=== PATIENT | female | born 1935 | race Caucasian/White ===

== ENCOUNTER 2019-11-13 10:18 | Inpatient (IN) | payer MEDICARE ==
[~2019-11-13] VITALS: Ht 160 cm; Wt 81.8 kg
[2019-11-13] MEDS ORDERED: METF-839 PO (10:43)
[2019-11-13] MEDS ORDERED: GABA-843 PO (10:43)
[2019-11-13] MEDS ORDERED: NETA2.5D2 OU (10:43)
[2019-11-13] MEDS ORDERED: OMEP-218 PO (10:43)
[2019-11-13] MEDS ORDERED: COMB0.2S OU (10:43)
[2019-11-13] MEDS ORDERED: VICT18IN SC (10:43)
[2019-11-13] MEDS ORDERED: ACET-839 PO (10:43)
[2019-11-13] MEDS ORDERED: SYNT75TA PO (10:43)
[2019-11-13] MEDS ORDERED: GLIP10TA6 PO (10:43)
[2019-11-13] MEDS ORDERED: LISI40TA PO (10:43)
[2019-11-13] MEDS ORDERED: OMEG10002 PO (10:43)
[2019-11-13] MEDS ORDERED: CALC-211 PO (10:43)
[2019-11-13] MEDS ORDERED: FARX1TAB3 PO (10:43)
[2019-11-13] MEDS ORDERED: TRAM50TA2 PO (10:43)
[2019-11-13] MEDS ORDERED: ATOR1TAB21 PO (10:43)
[2019-11-13] MEDS ORDERED: ASPI81CH33 PO (10:43)
[2019-11-13] MEDS ORDERED: PRED5TA PO (10:43)
[2019-11-13] MEDS ORDERED: POTA20TA6 PO (10:43)
[2019-11-13 11:09] LABS: BASO % 0.2 % (0.0-1.0); EOS % 0.3 % (0.0-3.0); HEMATOCRIT 32.7 % (36.0-47.0); HEMOGLOBIN 10.7 g/dl (12.0-15.5); LYMPH # 0.8 10^3/uL (1.5-5.0); LYMPH % 7.4 % (24.0-44.0); MEAN CORPUSCULAR HEMOGLOBIN 32.4 pg (27.0-33.0); MEAN CORPUSCULAR HGB CONC 32.7 g/dl (32.0-36.5); MEAN CORPUSCULAR VOLUME 99.1 fl (80.0-96.0); MONO # 0.9 10^3/uL (0.0-0.8); MONO % 8.2 % (0.0-5.0); NEUTROPHILS # 8.9 10^3/uL (1.5-8.5); NEUTROPHILS % 83.5 % (36.0-66.0); PLATELET COUNT, AUTOMATED 225 10^3/uL (150-450); WHITE BLOOD COUNT 10.7 10^3/uL (4.0-10.0)
[2019-11-13 11:17] LABS: INR 0.98; PROTHROMBIN TIME 13.2 SECONDS (12.5-14.3)
[2019-11-13 11:40] LABS: ALBUMIN 3.1 GM/DL (3.2-5.2); ALT/SGPT 37 U/L (12-78); BILIRUBIN,TOTAL 0.9 MG/DL (0.2-1.0); BLOOD UREA NITROGEN 18 MG/DL (7-18); CALCIUM LEVEL 9.9 MG/DL (8.8-10.2); CARBON DIOXIDE LEVEL 32 MEQ/L (21-32); CHLORIDE LEVEL 97 MEQ/L (98-107); CREATININE FOR GFR 0.72 MG/DL (0.55-1.30); GLOMERULAR FILTRATION RATE > 60.0 (>32); GLUCOSE, FASTING 215 MG/DL (70-100); POTASSIUM SERUM 3.8 MEQ/L (3.5-5.1); SODIUM LEVEL 135 MEQ/L (136-145); TOTAL PROTEIN 7.3 GM/DL (6.4-8.2)
--- NOTE | 2019-11-13 12:18 | REPVR ---
PROCEDURE INFORMATION: Exam: XR Left Hip with Pelvis when Performed Exam date and time: 11/13/2019 10:30 AM Age: 83 years old Clinical indication: Hip pain; Left hip; Prior surgery; Surgery date: 3-7 days post-operative; Additional info: Trauma S/P recent hip replacement TECHNIQUE: Imaging protocol: XR Left hip with pelvis when performed. Views: 2 or 3 views. COMPARISON: RF Arthrogram, Hip 08/19/2013 7:49 AM FINDINGS: Bones/joints: There is posterior dislocation the femoral head from the acetabular cup with mild proximal retraction. There is no evidence of fracture. Soft tissues: Unremarkable. IMPRESSION: 1. There is posterior dislocation the femoral head from the acetabular cup with mild proximal retraction. 2. There is no evidence of fracture. Electronically signed by: Tha Zavala On 11/13/2019 12:18:43 PM
[2019-11-13] MEDS ORDERED: propofoL 200 MG/20 ML VIAL IV PRN (13:00)
[2019-11-13] MEDS ORDERED: KETAMINE HCL 200 MG/20 ML VIAL IV ONE (13:00)
--- NOTE | 2019-11-13 13:34 | REPVR ---
PROCEDURE INFORMATION: Exam: XR Left Hip with Pelvis when Performed Exam date and time: 11/13/2019 1:26 PM Age: 83 years old Clinical indication: Injury or trauma; Fall; Dislocation; Left; Hip; Injury details: Post reduction; Prior surgery; Surgery date: <1 month TECHNIQUE: Imaging protocol: XR Left hip with pelvis when performed. Views: 1 view. COMPARISON: CR Hip,AP,LAT to include Pelvis 11/13/2019 11:56 AM FINDINGS: Bones/joints: There has been reduction of the left hip dislocation based on the single AP view.There is no evidence of fracture. Soft tissues: Unremarkable. IMPRESSION: There has been reduction of the left hip dislocation based on the single AP view.There is no evidence of fracture. Electronically signed by: Tha Zavala On 11/13/2019 13:33:57 PM
[2019-11-13] MEDS: NS 1,000 ML IV SCH ×2 (13:38→22:50)
[2019-11-13] MEDS ORDERED: GLUCOSE 4GM CHEW TABLET PO PRN (15:00)
[2019-11-13] MEDS ORDERED: GLUCAGON INJ 1MG VIAL SC PRN (15:00)
[2019-11-13] MEDS ORDERED: ACETAMINOPHEN TAB 650MG DOSE (2X325MG) PO PRN (15:00)
[2019-11-13] MEDS ORDERED: DEXTROSE 50% 50 ML SYRINGE IV PRN (15:00)
[2019-11-13] MEDS ORDERED: POTA10TA14 PO (15:19)
[2019-11-13] MEDS ORDERED: D31000TA2 PO (15:20)
[2019-11-13] MEDS ORDERED: GLIP10TA18 PO (15:20)
[2019-11-13] MEDS ORDERED: CHLO25TA PO (15:20)
[2019-11-13] MEDS ORDERED: VITMTA PO (15:20)
[2019-11-13] MEDS ORDERED: ASPI-161 PO (15:20)
[2019-11-13 16:05] VITALS: BP 154/80
[2019-11-13] MEDS ORDERED: CALCIUM CARBONATE 500 MG CHEW U/D PO PRN (16:15)
[2019-11-13] MEDS ORDERED: traMADol 50 MG TAB PO PRN (16:15)
[2019-11-13] MEDS: GABAPENTIN 300 MG CAP PO SCH ×2 (17:14→22:42)
[2019-11-13] MEDS: HumaLOG INSULIN (NovoLOG) PER UNIT SC SCH ×2 (17:25→21:00)
--- NOTE | 2019-11-13 19:23 | HPEPDOC ---
General Date of Admission Nov 13, 2019 at 14:49 Date of Service: Nov 13, 2019 Attending Physician: CONCHA SOLIS DO Chief Complaint The patient is a 83-year-old female admitted with a reason for visit of Hip Dislocation/Weakness. Source: Patient Exam Limitations: No limitations History of Present Illness Mrs. Irving is an 83 year old female with DM, hypothyroidism, HTN, and glaucoma who recently had hip surgery and discharged on Sunday who is here after having multiple falls. Her surgery was done by Dr. Jerod MD of [facility]. On Sunday, she went home, but she noticed she had trouble getting into and out of bed. She tried to get out of bed and slid to the ground. When she tried to get into bed, she also fell and slid to the ground. She then decided to sleep on the couch. On Sunday evening, she got up from the toilet to sit on the chair and misjudged the distance and fell on the ground. During each of these falls, she denies head strike, loss of consciousness, or lightheadedness/dizziness. Then time, when she fell, she could not get up. She was taken to the ED where she was found to have a left hip posterior dislocation of the femoral head from the acetabular cup. There was no evidence for fracture. They were able to reduce and confirm on repeat imaging. She has not been able to care for self at home and would need rehab to strengthen herself before going home. When I saw her in the ED, she denied any fever/chills, chest pain, palpitations, dyspnea, abdominal pain, diarrhea, or dysuria. Her bowel movements have been regular except for today. She sometimes feels fuzzy when she takes pain medication. Home Medications Scheduled Acetaminophen (Acetaminophen) 500 Mg Tablet, 1,000 MG PO BID, (Reported) Aspirin (Aspirin EC) 81 Mg Tablet., 81 MG PO BID, (Reported) Atorvastatin Calcium (Atorvastatin Calcium) 20 Mg Tablet, 20 MG PO QHS, (R eported) Brimonidine Tartrate/Timolol (Combigan 0.2%-0.5% Eye Drops) 5 Ml Drops, 1 DROP OU BID, (Reported) Calcium Carbonate (Calcium) 600 Mg Tablet, 600 MG PO DAILY, (Reported) Chlorthalidone (Chlorthalidone) 25 Mg Tablet, 25 MG PO DAILY, (Reported) Cholecalciferol (Vitamin D3) (Vitamin D3) 1,000 Unit Tablet, 1,000 UNITS PO DAILY, (Reported) Dapagliflozin Propanediol (Farxiga) 10 Mg Tablet, 5 MG PO DAILY, (Reported) Gabapentin (Gabapentin) 300 Mg Capsule, 300 MG PO TID, (Reported) Glipizide (Glipizide ER) 10 Mg Tab.er.24, 10 MG PO BID, (Reported) Levothyroxine Sodium (Synthroid) 75 Mcg Tablet, 75 MCG PO DAILY, (Reported) Liraglutide (Victoza 2-Topher) 0.6 Mg/0.1 Ml Pen.injctr, 1.8 MG SC DAILY, (Reported) Lisinopril (Lisinopril) 40 Mg Tablet, 40 MG PO DAILY, (Reported) Metformin HCl (Metformin HCl) 500 Mg Tablet, 500 MG PO BID, (Reported) Multivitamins (Thera M Plus Tablet) 1 Each Tablet, 1 TAB PO DAILY, (Reported) Netarsudil Mesylat/Latanoprost (Rocklatan 0.02%-0.005% Eye Drp) 2.5 Ml Drops, 1 DROP OU QHS, (Reported) [place]-3/Dha/Epa/Fish Oil (Fish Oil 1,000 mg Softgel) 1 Each Capsule, 1,000 MG PO QHS, (Reported) Omeprazole (Omeprazole) 20 Mg Capsule.dr, 20 MG PO DAILY, (Reported) Potassium Chloride (Potassium Chloride) 10 Meq Tablet.er, 10 MEQ PO BID, (Reported) Prednisone (Prednisone) 5 Mg Tablet, 5 MG PO DAILY, (Reported) Scheduled PRN Tramadol HCl (Tramadol HCl) 50 Mg Tablet, 50 MG PO Q4H PRN for PAIN, (Reported) Allergies Coded Allergies: Sulfa (Sulfonamide Antibiotics) (Verified Adverse Reaction, Unknown, hallucinations, 11/13/19) Past Medical History Medical History 1. Glaucoma 2. Hypercholesterolemia 3. Hypertension 4. Hemorrhoids 5. Constipation 6. GERD 7. Arthritis 8. Diabetes 9. Hypothyroidism 10. Claustrophobia Surgical History 1. Breast biopsy that was benign 2. Hysterectomy 3. Bladder suspension 4. Knee replacement in 1999 and 2007 5. Left hip on 11/11/2019 6. Carpal tunnel Family History Father: at the age of 85 from suicide. History of thyroid cancer Mother: at the age of 60. History of diabetes mellitus Social History * Smoker: Denies Alcohol: occationally Drugs: denies A-FIB/CHADSVASC A-FIB History Current/History of A-Fib/PAF?: No Review of Systems Constitutional: Denies: Chills, Fever Eyes: Denies: Vision change ENT: Denies: Dysphagia, Sore Throat Pulmonary: Denies: Dyspnea Cardiovascular: Denies: Chest Pain, Palpitations, Lt Headedness Gastrointestinal: Denies: Nausea, Abdominal Pain, Diarrhea, Constipation Genitourinary: Denies: Dysuria Musculoskeletal: Reports: Other Symptoms (Left hip pain, better after reduction) Neurological: Reports: Weakness, Other Symptoms (Fuzzy when taking pain medication) Psych: Reports: Mood Normal Physical Examination General Exam: Positive: Alert, Cooperative, No Acute Distress Eye Exam: Positive: EOMI; Negative: Sclera icteric ENT Exam: Positive: Atraumatic Neck Exam: Positive: Supple Chest Exam: Positive: Clear to auscultation; Negative: Rales, Rhonchi, Wheezing Heart Exam: Positive: Rate Normal Abdomen Exam: Positive: Normal bowel sounds, Soft; Negative: Tenderness Extremity Exam: Positive: Edema (Mild bilateral pitting edema) Neuro Exam: Positive: Normal Speech, Cranial Nerves 3-12 NL Psych Exam: Positive: Mental status NL, Mood NL Vital Signs Vital Signs Date Time Temp Pulse Resp B/P (MAP) Pulse Ox O2 Delivery O2 Flow Rate FiO2 11/13/19 15:45 98.8 72 20 149/68 (95) 95 Room Air 11/13/19 13:31 4.0 Laboratory Data Labs 24H Laboratory Tests 2 11/13/19 10:51: Immature Granulocyte % (Auto) 0.4, Neutrophils (%) (Auto) 83.5H, Lymphocytes (%) (Auto) 7.4L, Monocytes (%) (Auto) 8.2H, Eosinophils (%) (Auto) 0.3, Basophils (%) (Auto) 0.2, Neutrophils # (Auto) 8.9H, Lymphocytes # (Auto) 0.8L, Monocytes # (Auto) 0.9H, Eosinophils # (Auto) 0.0, Basophils # (Auto) 0.0, Nucleated Red Blood Cells % (auto) 0.0, Prothrombin Time 13.2, Prothromb Time International Ratio 0.98, Anion Gap 6L, Glomerular Filtration Rate > 60.0, Calcium Level 9.9, Total Bilirubin 0.9, Aspartate Amino Transf (AST/SGOT) 58H, Alanine Aminotransferase (ALT/SGPT) 37, Alkaline Phosphatase 56, Total Protein 7.3, Albumin 3.1L, Albumin/Globulin Ratio 0.7L 11/13/19 17:21: Bedside Glucose (Misc Panel) 117H CBC/BMP Laboratory Tests 11/13/19 10:51 Assessment/Plan Mrs. Irving is a 83 year old female with HTN, DM, HLD, arthritis, knee repl acements, and recent hip surgery on 11/11/2019 who is here with left hip dislocation and weakness. The left hip was reduced, no fracture was noted. Due to her frequent falls after hip surgery, she would benefit from rehab prior to going home. We will place an ARU screen for appropriateness for ARU rehab. Plan / VTE VTE Prophylaxis Ordered?: Yes Plan Plan 1. Left hip repair - Performed on 11/11/[address] Newsome ([facility]) - She went home and has had falls. First two falls on Sunday trying to get into and out of the bed. Third fall today which resulted in dislocation of left hip. It was reduced - Continue pain control - Will need physical therapy/rehab 2. Debility - After left hip replacement on 11/11/2019, she has not done well at home. Will need rehab 3. Hypertension May be elevated secondary to pain Continue lisinopril Continue monitoring 4. Hypothyroidism We will continue levothyroxine 5. Diabetes mellitus While inpatient we will hold Farxiga, glipizide, and Victoza Patient will be on insulin sliding scale and carb consistent diet 6. Glaucoma We will continue Brimonidine, Timolol, and Latanoprost We do not have Netarsudil 7. GERD We will continue omeprazole 8. Macrocytic anemia Hemoglobin 10.7 and MCV of 99.1 Continue monitoring 9. DVT prophylaxis Heparin twice a day CONCHA SOLIS DO Nov 13, 2019 17:48
[2019-11-13 20:00] VITALS: BP 129/64
[2019-11-13] MEDS: TIMOLOL MALEATE 0.5% OPHTH SOLN 5 ML OU SCH (22:38)
[2019-11-13] MEDS: LATANOPROST 0.005% OPHTH SOLN 2.5 ML OU SCH (22:38)
[2019-11-13] MEDS: ATORVASTATIN 20 MG TAB PO SCH (22:41)
[2019-11-13] MEDS: ASPIRIN 81 MG ENTERIC TAB PO SCH (22:41)
[2019-11-13] MEDS: BRIMONIDINE 0.1% OPHTH SOLN 5 ML OU SCH (22:41)
[2019-11-13] MEDS: POTASSIUM CHLORIDE 10 MEQ SR TABLET PO SCH (22:42)
[2019-11-13] MEDS: ACETAMINOPHEN 500 MG TAB PO SCH (22:42)
[2019-11-13] MEDS: HEPARIN SOD (PORCINE) 5000UNITS/ML 1ML VIAL/SYRINGE SC SCH (22:43)
[2019-11-14] MEDS: LEVOTHYROXINE 75MCG TABLET (0.075MG) PO SCH (05:34)
[2019-11-14 06:00] VITALS: BP 122/62
[2019-11-14 06:48] LABS: HEMATOCRIT 31.9 % (36.0-47.0); HEMOGLOBIN 10.3 g/dl (12.0-15.5); MEAN CORPUSCULAR HEMOGLOBIN 32.2 pg (27.0-33.0); MEAN CORPUSCULAR HGB CONC 32.3 g/dl (32.0-36.5); MEAN CORPUSCULAR VOLUME 99.7 fl (80.0-96.0); PLATELET COUNT, AUTOMATED 228 10^3/uL (150-450)
[2019-11-14 07:09] LABS: BLOOD UREA NITROGEN 17 MG/DL (7-18); CALCIUM LEVEL 9.2 MG/DL (8.8-10.2); CARBON DIOXIDE LEVEL 31 MEQ/L (21-32); CHLORIDE LEVEL 103 MEQ/L (98-107); CREATININE FOR GFR 0.59 MG/DL (0.55-1.30); GLOMERULAR FILTRATION RATE > 60.0 (>32); GLUCOSE, FASTING 128 MG/DL (70-100); POTASSIUM SERUM 3.4 MEQ/L (3.5-5.1); SODIUM LEVEL 139 MEQ/L (136-145)
[2019-11-14] MEDS ORDERED: POTASSIUM CHLORIDE 10 MEQ SR TABLET PO ONE (07:30)
[2019-11-14 07:44] LABS: MAGNESIUM LEVEL 1.9 MG/DL (1.8-2.4)
[2019-11-14] MEDS: ASPIRIN 81 MG ENTERIC TAB PO SCH ×2 (08:11→20:26)
[2019-11-14] MEDS: VITAMIN D 1,000 INTERNATIONAL UNITS TABLET PO SCH (08:11)
[2019-11-14] MEDS: ACETAMINOPHEN 500 MG TAB PO SCH ×2 (08:11→20:24)
[2019-11-14] MEDS: GABAPENTIN 300 MG CAP PO SCH ×3 (08:11→20:26)
[2019-11-14] MEDS: CHLORTHALIDONE 25 MG TAB PO SCH (08:12)
[2019-11-14] MEDS: predniSONE 5 MG TAB PO SCH (08:12)
[2019-11-14] MEDS: MULTIVITAMINS/MINERALS THERAP 1 TAB PO SCH (08:12)
[2019-11-14] MEDS: OMEPRAZOLE 20 MG CAP PO SCH (08:12)
[2019-11-14] MEDS: lisinopriL 40 MG TAB PO SCH (08:12)
[2019-11-14] MEDS: HEPARIN SOD (PORCINE) 5000UNITS/ML 1ML VIAL/SYRINGE SC SCH ×2 (08:12→20:26)
[2019-11-14] MEDS: BRIMONIDINE 0.1% OPHTH SOLN 5 ML OU SCH ×2 (08:13→20:27)
[2019-11-14] MEDS: HumaLOG INSULIN (NovoLOG) PER UNIT SC SCH ×4 (08:13→21:00)
[2019-11-14] MEDS: TIMOLOL MALEATE 0.5% OPHTH SOLN 5 ML OU SCH ×2 (08:13→20:28)
--- NOTE | 2019-11-14 09:06 | ECGEPIP ---
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
[2019-11-14 14:00] VITALS: BP 120/63
--- NOTE | 2019-11-14 18:05 | IPNPDOC ---
Subjective Date Seen The patient was seen on 11/14/19. Subjective Chief Complaint/HPI Mrs. Irving is an 83 year old female with DM, hypothyroidism, HTN, and glaucoma who recently had left hip joint replacement surgery who is here after having multiple falls. Her surgery was done by Dr. Jerod MD of [facility]. Today, she denies any fever/chills, chest pain, dyspnea, abdominal pain, or dysuria Constitutional: Denies: Chills, Fever Pulmonary: Denies: Dyspnea Cardiovascular: Denies: Chest Pain Gastrointestinal: Denies: Abdominal Pain Genitourinary: Denies: Dysuria Objective Physical Examination General Exam: Positive: Alert, Cooperative, No Acute Distress Eye Exam: Positive: EOMI; Negative: Sclera icteric ENT Exam: Positive: Atraumatic Neck Exam: Positive: Supple Chest Exam: Positive: Clear to auscultation; Negative: Rales, Rhonchi, Wheezing Heart Exam: Positive: Rate Normal Abdomen Exam: Positive: Normal bowel sounds, Soft; Negative: Tenderness Extremity Exam: Positive: Edema (Mild bilateral pitting edema) Neuro Exam: Positive: Normal Speech, Cranial Nerves 3-12 NL Psych Exam: Positive: Mental status NL, Mood NL Assessment /Plan Assessment Mrs. Irving is a 83 year old female with HTN, DM, HLD, arthritis, knee replacements, and recent left hip joint replacement surgery on 11/11/2019 who is here with left hip dislocation and weakness. The left hip was reduced, no fracture was noted. Due to her frequent falls after hip surgery, she would benefit from rehab prior to going home. Pending insurance. Hopeful for ARU on Sunday Plan/VTE VTE Prophylaxis Ordered?: Yes Plan 1. Left hip joint replacement surgery - Performed on 11/11/[address] Newsome ([facility]) - She went home and has had falls. First two falls on Sunday trying to get into and out of the bed. Third fall today which resulted in dislocation of left hip. It was reduced - Continue pain control - Will need physical therapy/rehab - Pending insurance, hopeful for ARU on Sunday 2. Debility - After left hip replacement on 11/11/2019, she has not done well at home. Will need rehab 3. Hypertension May be elevated secondary to pain Continue lisinopril Continue monitoring 4. Hypothyroidism We will continue levothyroxine 5. Diabetes mellitus While inpatient we will hold Farxiga, glipizide, and Victoza Patient will be on insulin sliding scale and carb consistent diet 6. Glaucoma We will continue Brimonidine, Timolol, and Latanoprost We do not have Netarsudil 7. GERD We will continue omeprazole 8. Macrocytic anemia Hemoglobin 10.7 and MCV of 99.1 Continue monitoring 9. DVT prophylaxis Heparin subq VS, I&O, 24H, Fishbone Vital Signs/I&O Vital Signs Date Time Temp Pulse Resp B/P (MAP) Pulse Ox O2 Delivery O2 Flow Rate FiO2 11/14/19 14:00 98.1 97 18 120/63 (82) 91 Room Air 11/13/19 13:31 4.0 I&O- Last 24 Hours up to 6 AM 11/14/19 06:00 Intake Total 1280 ml Balance 1280 ml Laboratory Data 24H LABS Laboratory Tests 2 11/13/19 20:22: Bedside Glucose (Misc Panel) 163H 11/13/19 22:53: Urine Color YELLOW, Urine Appearance CLOUDYH, Urine pH 5.0, Urine Specific [place] 1.029, Urine Protein NEGATIVE, Urine Glucose (UA) 3+H, Urine Ketones 1+H, Urine Blood 1+H, Urine Nitrite NEGATIVE, Urine Bilirubin NEGATIVE, Urine Urobilinogen 0.2, Urine Leukocyte Esterase 3+H, Urine WBC (Auto) 100H, Urine RBC (Auto) 8H, Urine Hyaline Casts (Auto) 0, Urine Bacteria (Auto) 1+H, Urine Squamous Epithelial Cells 7, Urine Mucus (Auto) SMALL, Urine Sperm (Auto) 11/14/19 06:25: Nucleated Red Blood Cells % (auto) 0.0, Anion Gap 5L, Glomerular Filtration Rate > 60.0, Calcium Level 9.2, Magnesium Level 1.9 11/14/19 12:43: Bedside Glucose (Misc Panel) 177H 11/14/19 17:25: Bedside Glucose (Misc Panel) 157H CBC/BMP Laboratory Tests 11/14/19 06:25 Microbiology Microbiology 11/13/19 Urine Culture, Received Pending 11/13/19 Blood Culture, Received Pending 11/13/19 Blood Culture - Preliminary, Resulted No growth after 24 hours . All specim... CONCHA SOLIS DO Nov 14, 2019 18:05
[2019-11-14] MEDS: POTASSIUM CHLORIDE 10 MEQ SR TABLET PO SCH (20:25)
[2019-11-14] MEDS: LATANOPROST 0.005% OPHTH SOLN 2.5 ML OU SCH (20:26)
[2019-11-14] MEDS: ATORVASTATIN 20 MG TAB PO SCH (20:26)
[2019-11-14 22:00] VITALS: BP 125/71
[2019-11-15] MEDS: LEVOTHYROXINE 75MCG TABLET (0.075MG) PO SCH (05:40)
[2019-11-15 06:00] VITALS: BP_SYST 121; BP_SYST 152; BP_DIAS 69; BP_DIAS 77
[2019-11-15 07:26] LABS: BLOOD UREA NITROGEN 17 MG/DL (7-18); CALCIUM LEVEL 9.2 MG/DL (8.8-10.2); CARBON DIOXIDE LEVEL 32 MEQ/L (21-32); CHLORIDE LEVEL 103 MEQ/L (98-107); CREATININE FOR GFR 0.69 MG/DL (0.55-1.30); GLOMERULAR FILTRATION RATE > 60.0 (>32); GLUCOSE, FASTING 153 MG/DL (70-100); POTASSIUM SERUM 3.7 MEQ/L (3.5-5.1); SODIUM LEVEL 139 MEQ/L (136-145)
[2019-11-15] MEDS: HumaLOG INSULIN (NovoLOG) PER UNIT SC SCH ×4 (08:02→21:00)
[2019-11-15] MEDS: ASPIRIN 81 MG ENTERIC TAB PO SCH ×2 (08:02→20:26)
[2019-11-15] MEDS: ACETAMINOPHEN 500 MG TAB PO SCH ×2 (08:02→20:26)
[2019-11-15] MEDS: OMEPRAZOLE 20 MG CAP PO SCH (08:03)
[2019-11-15] MEDS: lisinopriL 40 MG TAB PO SCH (08:03)
[2019-11-15] MEDS: predniSONE 5 MG TAB PO SCH (08:03)
[2019-11-15] MEDS: CHLORTHALIDONE 25 MG TAB PO SCH (08:03)
[2019-11-15] MEDS: VITAMIN D 1,000 INTERNATIONAL UNITS TABLET PO SCH (08:03)
[2019-11-15] MEDS: MULTIVITAMINS/MINERALS THERAP 1 TAB PO SCH (08:03)
[2019-11-15] MEDS: GABAPENTIN 300 MG CAP PO SCH ×3 (08:03→20:26)
[2019-11-15] MEDS: HEPARIN SOD (PORCINE) 5000UNITS/ML 1ML VIAL/SYRINGE SC SCH ×2 (08:04→20:25)
[2019-11-15] MEDS: TIMOLOL MALEATE 0.5% OPHTH SOLN 5 ML OU SCH ×2 (08:05→20:27)
[2019-11-15] MEDS: BRIMONIDINE 0.1% OPHTH SOLN 5 ML OU SCH ×3 (08:05→20:27)
[2019-11-15] MEDS: POTASSIUM CHLORIDE 10 MEQ SR TABLET PO SCH ×2 (08:06→20:26)
[2019-11-15 14:00] VITALS: BP 131/74
--- NOTE | 2019-11-15 16:46 | IPNPDOC ---
Subjective Date Seen The patient was seen on 11/15/19. Subjective Chief Complaint/HPI Mrs. Irving is an 83 year old female with DM, hypothyroidism, HTN, and glaucoma who recently had left hip joint replacement surgery who is here after having multiple falls. Today, she denies any fever/chills, chest pain, dyspnea, abdominal pain, or dysuria. Anticipating ARU on Sunday Constitutional: Denies: Chills, Fever Pulmonary: Denies: Dyspnea Cardiovascular: Denies: Chest Pain Gastrointestinal: Denies: Abdominal Pain Genitourinary: Denies: Dysuria Objective Physical Examination General Exam: Positive: Alert, Cooperative, No Acute Distress Eye Exam: Positive: EOMI; Negative: Sclera icteric ENT Exam: Positive: Atraumatic Neck Exam: Positive: Supple Chest Exam: Positive: Clear to auscultation; Negative: Rales, Rhonchi, Wheezing Heart Exam: Positive: Rate Normal Abdomen Exam: Positive: Normal bowel sounds, Soft; Negative: Tenderness Extremity Exam: Positive: Edema (Mild bilateral pitting edema) Neuro Exam: Positive: Normal Speech, Cranial Nerves 3-12 NL Psych Exam: Positive: Mental status NL, Mood NL Assessment /Plan Assessment Mrs. Irving is a 83 year old female with HTN, DM, HLD, arthritis, knee replacements, and recent left hip joint replacement surgery on 11/11/2019 who is here with left hip dislocation and weakness. The left hip was reduced, no fracture was noted. Due to her frequent falls after hip surgery, she would be nefit from rehab prior to going home. Pending insurance. Hopeful for ARU on Sunday Plan/VTE VTE Prophylaxis Ordered?: Yes Plan 1. Left hip joint replacement surgery - Performed on 11/11/[address] Newsome ([facility]) - She went home and has had falls. First two falls on Sunday trying to get into and out of the bed. Third fall today which resulted in dislocation of left hip. It was reduced - Continue pain control - Will need physical therapy/rehab - Pending insurance, hopeful for ARU on Sunday 2. Debility - After left hip replacement on 11/11/2019, she has not done well at home. Will need rehab 3. Hypertension May be elevated secondary to pain Continue lisinopril Continue monitoring 4. Hypothyroidism We will continue levothyroxine 5. Diabetes mellitus While inpatient we will hold Farxiga, glipizide, and Victoza Patient will be on insulin sliding scale and carb consistent diet 6. Glaucoma We will continue Brimonidine, Timolol, and Latanoprost We do not have Netarsudil 7. GERD We will continue omeprazole 8. Macrocytic anemia Hemoglobin 10.7 and MCV of 99.1 Continue monitoring 9. Hypokalemia -Potassium was low yesterday at 3.4 -Given 40mEq KCL yesterday. -Continue to follow BMP 10. DVT prophylaxis Heparin subq VS, I&O, 24H, Fishbone Vital Signs/I&O Vital Signs Date Time Temp Pulse Resp B/P (MAP) Pulse Ox O2 Delivery O2 Flow Rate FiO2 11/15/19 14:00 97.9 83 18 131/74 (93) 95 Room Air 11/13/19 13:31 4.0 I&O- Last 24 Hours up to 6 AM 11/15/19 06:00 Intake Total 1080 ml Balance 1080 ml Laboratory Data 24H LABS Laboratory Tests 2 11/14/19 17:25: Bedside Glucose (Misc Panel) 157H 11/14/19 19:57: Bedside Glucose (Misc Panel) 167H 11/14/19 20:07: Bedside Glucose (Misc Panel) 154H 11/15/19 06:02: Bedside Glucose (Misc Panel) 132H 11/15/19 06:36: Anion Gap 4L, Glomerular Filtration Rate > 60.0, Calcium Level 9.2 11/15/19 11:30: Bedside Glucose (Misc Panel) 343H CBC/BMP Laboratory Tests 11/15/19 06:36 Microbiology Microbiology 11/13/19 Urine Culture, Received Pending 11/13/19 Blood Culture - Preliminary, Resulted No growth after 24 hours . All specim... 11/13/19 Blood Culture - Preliminary, Resulted No growth after 24 hours . All specim... CONCHA SOLIS DO Nov 15, 2019 16:46
[2019-11-15 20:00] VITALS: BP 136/72
[2019-11-15] MEDS: ATORVASTATIN 20 MG TAB PO SCH (20:26)
[2019-11-15] MEDS: LATANOPROST 0.005% OPHTH SOLN 2.5 ML OU SCH (20:27)
[2019-11-16 05:58] VITALS: BP 145/70
[2019-11-16] MEDS: LEVOTHYROXINE 75MCG TABLET (0.075MG) PO SCH (06:10)
[2019-11-16 07:10] LABS: BLOOD UREA NITROGEN 20 MG/DL (7-18); CALCIUM LEVEL 8.8 MG/DL (8.8-10.2); CARBON DIOXIDE LEVEL 31 MEQ/L (21-32); CHLORIDE LEVEL 103 MEQ/L (98-107); CREATININE FOR GFR 0.67 MG/DL (0.55-1.30); GLOMERULAR FILTRATION RATE > 60.0 (>32); GLUCOSE, FASTING 199 MG/DL (70-100); SODIUM LEVEL 140 MEQ/L (136-145)
[2019-11-16] MEDS: VITAMIN D 1,000 INTERNATIONAL UNITS TABLET PO SCH (08:05)
[2019-11-16] MEDS: ASPIRIN 81 MG ENTERIC TAB PO SCH ×2 (08:05→21:15)
[2019-11-16] MEDS: HEPARIN SOD (PORCINE) 5000UNITS/ML 1ML VIAL/SYRINGE SC SCH ×2 (08:05→21:15)
[2019-11-16] MEDS: HumaLOG INSULIN (NovoLOG) PER UNIT SC SCH ×4 (08:05→21:00)
[2019-11-16] MEDS: predniSONE 5 MG TAB PO SCH (08:06)
[2019-11-16] MEDS: ACETAMINOPHEN 500 MG TAB PO SCH ×2 (08:06→21:16)
[2019-11-16] MEDS: MULTIVITAMINS/MINERALS THERAP 1 TAB PO SCH (08:06)
[2019-11-16] MEDS: CHLORTHALIDONE 25 MG TAB PO SCH (08:06)
[2019-11-16] MEDS: GABAPENTIN 300 MG CAP PO SCH ×3 (08:07→21:15)
[2019-11-16] MEDS: POTASSIUM CHLORIDE 10 MEQ SR TABLET PO SCH ×2 (08:07→21:16)
[2019-11-16] MEDS: lisinopriL 40 MG TAB PO SCH (08:07)
[2019-11-16] MEDS: OMEPRAZOLE 20 MG CAP PO SCH (08:07)
[2019-11-16] MEDS: TIMOLOL MALEATE 0.5% OPHTH SOLN 5 ML OU SCH ×2 (08:08→21:17)
[2019-11-16] MEDS: BRIMONIDINE 0.1% OPHTH SOLN 5 ML OU SCH ×3 (08:08→21:00)
[2019-11-16 14:00] VITALS: BP 105/59
--- NOTE | 2019-11-16 14:33 | IPNPDOC ---
Subjective Date Seen The patient was seen on 11/16/19. Subjective Chief Complaint/HPI Mrs. Irving is an 83 year old female with DM, hypothyroidism, HTN, and glaucoma who recently had left hip joint replacement surgery who is here after having multiple falls. This morning, we spoke about tomorrow's plan. She was telling me that her son is an EMT and he said that she would not be able to go home. He had requested [facility] since he knows someone there. There may be some confusion in that she thought she was going home. Explained that we are still sending her an inpatient rehab and that she was not going to go home tomorrow. I was not sure what the differences are between [facility] and [facility], but told her she can ask tomorrow when the full team arrives. Constitutional: Denies: Chills, Fever Pulmonary: Denies: Dyspnea Cardiovascular: Denies: Chest Pain Gastrointestinal: Denies: Abdominal Pain Genitourinary: Denies: Dysuria Objective Physical Examination General Exam: Positive: Alert, Cooperative, No Acute Distress Eye Exam: Positive: EOMI; Negative: Sclera icteric ENT Exam: Positive: Atraumatic Neck Exam: Positive: Supple Chest Exam: Positive: Clear to auscultation; Negative: Rales, Rhonchi, Wheezing Heart Exam: Positive: Rate Normal Abdomen Exam: Positive: Normal bowel sounds, Soft; Negative: Tenderness Extremity Exam: Positive: Edema (Mild bilateral pitting edema) Neuro Exam: Positive: Normal Speech, Cranial Nerves 3-12 NL Psych Exam: Positive: Mental status NL, Mood NL Assessment /Plan Assessment Mrs. Irving is a 83 year old female with HTN, DM, HLD, arthritis, knee replacements, and recent left hip joint replacement surgery on 11/11/2019 who is here with left hip dislocation and weakness. The left hip was reduced, no fracture was noted. Due to her frequent falls after hip surgery, she would bene fit from rehab prior to going home. Pending insurance. Hopeful for ARU on Sunday Plan/VTE VTE Prophylaxis Ordered?: Yes Plan 1. Left hip joint replacement surgery - Performed on 11/11/[address] Newsome ([facility]) - She went home and has had falls. First two falls on Sunday trying to get into and out of the bed. Third fall today which resulted in dislocation of left hip. It was reduced - Continue pain control - Will need physical therapy/rehab - Pending insurance, hopeful for ARU on Sunday 2. Debility - After left hip replacement on 11/11/2019, she has not done well at home. Will need rehab 3. Hypertension May be elevated secondary to pain Continue lisinopril Continue monitoring 4. Hypothyroidism We will continue levothyroxine 5. Diabetes mellitus While inpatient we will hold Farxiga, glipizide, and Victoza Patient will be on insulin sliding scale and carb consistent diet 6. Glaucoma We will continue Brimonidine, Timolol, and Latanoprost We do not have Netarsudil 7. GERD We will continue omeprazole 8. Macrocytic anemia Continue monitoring 9. Hypokalemia -Resolved, continue to follow 10. DVT prophylaxis Heparin subq VS, I&O, 24H, Fishbone Vital Signs/I&O Vital Signs Date Time Temp Pulse Resp B/P (MAP) Pulse Ox O2 Delivery O2 Flow Rate FiO2 11/16/19 05:58 96.0 82 18 145/70 (95) 96 Room Air 11/13/19 13:31 4.0 I&O- Last 24 Hours up to 6 AM 11/16/19 06:00 Intake Total 1710 ml Balance 1710 ml Laboratory Data 24H LABS Laboratory Tests 2 11/15/19 16:45: Bedside Glucose (Misc Panel) 166H 11/15/19 19:51: Bedside Glucose (Misc Panel) 176H 11/16/19 06:30: Anion Gap 6L, Glomerular Filtration Rate > 60.0, Calcium Level 8.8 11/16/19 12:06: Bedside Glucose (Misc Panel) 250H CBC/BMP Laboratory Tests 11/16/19 06:30 Microbiology Microbiology 11/13/19 Urine Culture - Final, Complete Escherichia Coli 11/13/19 Blood Culture - Preliminary, Resulted No Growth after 48 hours. All Specime... 11/13/19 Blood Culture - Preliminary, Resulted No Growth after 48 hours. All Specime... CONCHA SOLIS DO Nov 16, 2019 14:33
[2019-11-16] MEDS: ATORVASTATIN 20 MG TAB PO SCH (21:16)
[2019-11-16] MEDS: LATANOPROST 0.005% OPHTH SOLN 2.5 ML OU SCH (21:17)
[2019-11-16 22:00] VITALS: BP 114/54
[2019-11-17] MEDS: LEVOTHYROXINE 75MCG TABLET (0.075MG) PO SCH (05:49)
[2019-11-17 06:00] VITALS: BP 129/66
[2019-11-17 06:32] LABS: HEMATOCRIT 30.3 % (36.0-47.0); HEMOGLOBIN 9.6 g/dl (12.0-15.5); MEAN CORPUSCULAR HEMOGLOBIN 31.9 pg (27.0-33.0); MEAN CORPUSCULAR HGB CONC 31.7 g/dl (32.0-36.5); MEAN CORPUSCULAR VOLUME 100.7 fl (80.0-96.0); PLATELET COUNT, AUTOMATED 323 10^3/uL (150-450); RED BLOOD COUNT 3.01 10^6/uL (4.00-5.40)
[2019-11-17 06:55] LABS: BLOOD UREA NITROGEN 17 MG/DL (7-18); CALCIUM LEVEL 8.4 MG/DL (8.8-10.2); CARBON DIOXIDE LEVEL 32 MEQ/L (21-32); CHLORIDE LEVEL 106 MEQ/L (98-107); CREATININE FOR GFR 0.69 MG/DL (0.55-1.30); GLOMERULAR FILTRATION RATE > 60.0 (>32); GLUCOSE, FASTING 197 MG/DL (70-100); POTASSIUM SERUM 4.3 MEQ/L (3.5-5.1); SODIUM LEVEL 142 MEQ/L (136-145)
[2019-11-17] MEDS: MULTIVITAMINS/MINERALS THERAP 1 TAB PO SCH (08:02)
[2019-11-17] MEDS: OMEPRAZOLE 20 MG CAP PO SCH (08:02)
[2019-11-17] MEDS: ACETAMINOPHEN 500 MG TAB PO SCH ×2 (08:03→20:54)
[2019-11-17] MEDS: VITAMIN D 1,000 INTERNATIONAL UNITS TABLET PO SCH (08:04)
[2019-11-17] MEDS: GABAPENTIN 300 MG CAP PO SCH ×3 (08:04→20:53)
[2019-11-17] MEDS: lisinopriL 40 MG TAB PO SCH (08:05)
[2019-11-17] MEDS: ASPIRIN 81 MG ENTERIC TAB PO SCH ×2 (08:05→20:53)
[2019-11-17] MEDS: CHLORTHALIDONE 25 MG TAB PO SCH (08:05)
[2019-11-17] MEDS: POTASSIUM CHLORIDE 10 MEQ SR TABLET PO SCH ×2 (08:06→20:55)
[2019-11-17] MEDS: predniSONE 5 MG TAB PO SCH (08:06)
[2019-11-17] MEDS: HEPARIN SOD (PORCINE) 5000UNITS/ML 1ML VIAL/SYRINGE SC SCH ×2 (08:07→20:53)
[2019-11-17] MEDS: HumaLOG INSULIN (NovoLOG) PER UNIT SC SCH ×4 (08:07→20:55)
[2019-11-17] MEDS: TIMOLOL MALEATE 0.5% OPHTH SOLN 5 ML OU SCH ×2 (08:08→20:56)
[2019-11-17] MEDS: BRIMONIDINE 0.1% OPHTH SOLN 5 ML OU SCH ×2 (08:08→20:56)
[2019-11-17 14:00] VITALS: BP 128/68
--- NOTE | 2019-11-17 15:44 | IPNPDOC ---
Text Note Date of Service The patient was seen on 11/17/19. NOTE Subjective: No any acute events overnight. Objective: Gen: NAD HEENT: PERRLA, EOMI Lungs: Clear to auscultation CV: S1-S2 Abdomen: Nontender, nondistended Extremities: +1 pitting edema, no cyanosis Neuro: Nonfocal Assessment and plan Mrs. Irving is a 83 year old female with HTN, DM, HLD, arthritis, knee replacements, and recent left hip joint replacement surgery on 11/11/2019 who is here with left hip dislocation and weakness. The left hip was reduced, no fracture was noted Left hip joint replacement surgery PT/OT Pain management Debility Await ARU placement Hypertension Blood pressure under control Continue cardioprotective meds Hypothyroidism Continue levothyroxine Diabetes mellitus Diabetes diet Continue ISS Glaucoma We will continue Brimonidine, Timolol, and Latanoprost We do not have Netarsudil GERD We will continue omeprazole Macrocytic anemia Could be secondary to PPI We'll check B12, folate Continue monitoring Hypokalemia Resolved, continue to follow DVT prophylaxis Heparin subq VS,Fishbone, I+O VS, Fishbone, I+O Laboratory Tests 11/17/19 06:00 Vital Signs Date Time Temp Pulse Resp B/P (MAP) Pulse Ox O2 Delivery O2 Flow Rate FiO2 11/17/19 06:00 98.7 68 16 129/66 (87) 94 Room Air 11/13/19 13:31 4.0 I&O- Last 24 Hours up to 6 AM 11/17/19 06:00 Intake Total 1730 ml Balance 1730 ml TRACIE ESCOBAR DO Nov 17, 2019 15:44
[2019-11-17 16:35] LABS: VITAMIN B12 LEVEL 480 PG/ML (247-911)
[2019-11-17 16:36] LABS: FOLATE 13.7 NG/ML (>5.4)
[2019-11-17] MEDS: ATORVASTATIN 20 MG TAB PO SCH (20:54)
[2019-11-17] MEDS: LATANOPROST 0.005% OPHTH SOLN 2.5 ML OU SCH (20:56)
[2019-11-17 22:00] VITALS: BP 120/57
[2019-11-18] MEDS: LEVOTHYROXINE 75MCG TABLET (0.075MG) PO SCH (05:54)
[2019-11-18 06:00] VITALS: BP 156/61
[2019-11-18 06:15] LABS: BLOOD UREA NITROGEN 19 MG/DL (7-18); CALCIUM LEVEL 8.9 MG/DL (8.8-10.2); CARBON DIOXIDE LEVEL 31 MEQ/L (21-32); CHLORIDE LEVEL 105 MEQ/L (98-107); CREATININE FOR GFR 0.59 MG/DL (0.55-1.30); GLOMERULAR FILTRATION RATE > 60.0 (>32); GLUCOSE, FASTING 226 MG/DL (70-100); POTASSIUM SERUM 3.9 MEQ/L (3.5-5.1); SODIUM LEVEL 139 MEQ/L (136-145)
[2019-11-18] MEDS: HEPARIN SOD (PORCINE) 5000UNITS/ML 1ML VIAL/SYRINGE SC SCH ×2 (08:26→20:14)
[2019-11-18] MEDS: GABAPENTIN 300 MG CAP PO SCH ×3 (08:27→20:15)
[2019-11-18] MEDS: VITAMIN D 1,000 INTERNATIONAL UNITS TABLET PO SCH (08:27)
[2019-11-18] MEDS: HumaLOG INSULIN (NovoLOG) PER UNIT SC SCH ×4 (08:27→20:15)
[2019-11-18] MEDS: MULTIVITAMINS/MINERALS THERAP 1 TAB PO SCH (08:28)
[2019-11-18] MEDS: CHLORTHALIDONE 25 MG TAB PO SCH (08:29)
[2019-11-18] MEDS: predniSONE 5 MG TAB PO SCH (08:29)
[2019-11-18] MEDS: OMEPRAZOLE 20 MG CAP PO SCH (08:30)
[2019-11-18] MEDS: POTASSIUM CHLORIDE 10 MEQ SR TABLET PO SCH ×2 (08:30→20:16)
[2019-11-18] MEDS: lisinopriL 40 MG TAB PO SCH (08:30)
[2019-11-18] MEDS: ASPIRIN 81 MG ENTERIC TAB PO SCH ×2 (08:30→20:16)
[2019-11-18] MEDS: TIMOLOL MALEATE 0.5% OPHTH SOLN 5 ML OU SCH ×2 (08:31→20:17)
[2019-11-18] MEDS: ACETAMINOPHEN 500 MG TAB PO SCH ×2 (08:31→20:16)
[2019-11-18] MEDS: BRIMONIDINE 0.1% OPHTH SOLN 5 ML OU SCH ×2 (08:32→20:17)
--- NOTE | 2019-11-18 12:57 | IPNPDOC ---
Text Note Date of Service The patient was seen on 11/18/19. NOTE Subjective: No any acute events overnight. Patient told me today that she has left foot drop, she does not remember when it happened after surgery or after hip repositioning. Objective: Gen: NAD HEENT: PERRLA, EOMI Lungs: Clear to auscultation CV: S1-S2 Abdomen: Nontender, nondistended Extremities: +1 pitting edema, no cyanosis Neuro: Left foot drop, cranial nerves from 2-12 intact Assessment and plan Mrs. Irving is a 83 year old female with HTN, DM, HLD, arthritis, knee replacements, and recent left hip joint replacement surgery on 11/11/2019 who is here with left hip dislocation and weakness. The left hip was reduced, no fracture was noted Left hip joint replacement surgery PT/OT Pain management Left foot drop she does not remember when it happened after surgery or after hip repositioning. I talked to Dr Bocanegra he recommended that pt needs to contact surgeon who did hip replacement Debility Await ARU placement Hypertension Blood pressure under control Continue cardioprotective meds Hypothyroidism Continue levothyroxine Diabetes mellitus Diabetes diet Continue ISS Glaucoma We will continue Brimonidine, Timolol, and Latanoprost We do not have Netarsudil GERD We will continue omeprazole Macrocytic anemia Could be secondary to PPI B12, folate within normal limit Continue monitoring Hypokalemia Resolved, continue to follow DVT prophylaxis Heparin subq VS,Fishbone, I+O VS, Fishbone, I+O Laboratory Tests 11/18/19 05:29 Vital Signs Date Time Temp Pulse Resp B/P (MAP) Pulse Ox O2 Delivery O2 Flow Rate FiO2 11/18/19 06:00 97.8 70 17 156/61 (92) 96 Room Air 11/13/19 13:31 4.0 I&O- Last 24 Hours up to 6 AM 11/18/19 06:00 Intake Total 260 ml Balance 260 ml TRACIE ESCOBAR DO Nov 18, 2019 12:57
[2019-11-18 14:00] VITALS: BP 117/47
--- NOTE | 2019-11-18 19:43 | DS.PDOC ---
Discharge Summary General Date of Admission Nov 13, 2019 at 14:49 Date of Discharge 11/18/19 Discharge Summary PROCEDURES PERFORMED DURING STAY: [None]. ADMITTING DIAGNOSES: Left hip joint replacement surgery Left foot drop Debility Hypertension Hypothyroidism Diabetes mellitus Glaucoma GERD Macrocytic anemia Hypokalemia DISCHARGE DIAGNOSES: Left hip joint replacement surgery Left foot drop Debility Hypertension Hypothyroidism Diabetes mellitus Glaucoma GERD Macrocytic anemia Hypokalemia COMPLICATIONS/CHIEF COMPLAINT: Hip Dislocation/Weakness. HISTORY OF PRESENT ILLNESS: Mrs. Irving is a 83 year old female with HTN, DM, HLD, arthritis, knee replacements, and recent left hip joint replacement surgery on 11/11/2019 who is here with left hip dislocation and weakness. The left hip was reduced, no fracture was noted HOSPITAL COURSE: During hospital stay following issue addressed Left hip joint replacement surgery PT/OT Pain management Left foot drop she does not remember when it happened after surgery or after hip repositioning. I talked to Dr Bocanegra he recommended that pt needs to contact surgeon who did hip replacement Patient will be transferred to [facility] in [place] Debility Await ARU placement Hypertension Blood pressure under control Continue cardioprotective meds Hypothyroidism Continue levothyroxine Diabetes mellitus Diabetes diet Continue ISS Glaucoma We will continue Brimonidine, Timolol, and Latanoprost We do not have Netarsudil GERD We will continue omeprazole Macrocytic anemia Could be secondary to PPI B12, folate within normal limit Continue monitoring Hypokalemia Resolved, continue to follow DVT prophylaxis Heparin subq DISCHARGE MEDICATIONS: Please see below. ALLERGIES: Please see below. PHYSICAL EXAMINATION ON DISCHARGE: VITAL SIGNS: Please see below. Objective: Gen: NAD HEENT: PERRLA, EOMI Lungs: Clear to auscultation CV: S1-S2 Abdomen: Nontender, nondistended Extremities: +1 pitting edema, no cyanosis Neuro: Left foot drop, cranial nerves from 2-12 intact LABORATORY DATA: Please see below. IMAGING: PROCEDURE INFORMATION: Exam: XR Left Hip with Pelvis when Performed Exam date and time: 11/13/2019 1:26 PM Age: 83 years old Clinical indication: Injury or trauma; Fall; Dislocation; Left; Hip; Injury details: Post reduction; Prior surgery; Surgery date: <1 month TECHNIQUE: Imaging protocol: XR Left hip with pelvis when performed. Views: 1 view. COMPARISON: CR Hip,AP,LAT to include Pelvis 11/13/2019 11:56 AM FINDINGS: Bones/joints: There has been reduction of the left hip dislocation based on the single AP view.There is no evidence of fracture. Soft tissues: Unremarkable. IMPRESSION: There has been reduction of the left hip dislocation based on the single AP view.There is no evidence of fracture. PROGNOSIS: Fever ACTIVITY: [As tolerated]. DIET: Cardiac DISCHARGE PLAN: Transferred to [facility] in [place] ITEMS TO FOLLOWUP ON ON OUTPATIENT: Follow-up with orthopedic surgeon DISCHARGE CONDITION: [Stable]. TIME SPENT ON DISCHARGE: Greater than 30 minutes. Vital Signs/I&Os Vital Signs Date Time Temp Pulse Resp B/P (MAP) Pulse Ox O2 Delivery O2 Flow Rate FiO2 11/18/19 14:00 98.4 87 18 117/47 (70) 99 Room Air 11/13/19 13:31 4.0 I&O- Last 24 Hours up to 6 AM 11/18/19 06:00 Intake Total 260 ml Balance 260 ml Laboratory Data Labs 24H Laboratory Tests 2 11/17/19 20:36: Bedside Glucose (Misc Panel) 229H 11/18/19 05:29: Anion Gap 3L, Glomerular Filtration Rate > 60.0, Calcium Level 8.9 CBC/BMP Laboratory Tests 11/18/19 05:29 FSBS Laboratory Tests Test 11/17/19 20:36 Range/Units Bedside Glucose (Misc Panel) 229 83-110 MG/DL Microbiology Microbiology 11/13/19 Urine Culture - Final, Complete Escherichia Coli 11/13/19 Blood Culture - Final, Complete NO GROWTH AFTER 5 DAYS 11/13/19 Blood Culture - Final, Complete NO GROWTH AFTER 5 DAYS Discharge Medications Scheduled Acetaminophen (Acetaminophen) 500 Mg Tablet, 1,000 MG PO BID, (Reported) Aspirin (Aspirin EC) 81 Mg Tablet.dr, 81 MG PO BID, (Reported) Atorvastatin Calcium (Atorvastatin Calcium) 20 Mg Tablet, 20 MG PO QHS, (Reported) Brimonidine Tartrate/Timolol (Combigan 0.2%-0.5% Eye Drops) 5 Ml Drops, 1 DROP OU BID, (Reported) Calcium Carbonate (Calcium) 600 Mg Tablet, 600 MG PO DAILY, (Reported) Chlorthalidone (Chlorthalidone) 25 Mg Tablet, 25 MG PO DAILY, (Reported) Cholecalciferol (Vitamin D3) (Vitamin D3) 1,000 Unit Tablet, 1,000 UNITS PO DAILY, (Reported) Dapagliflozin Propanediol (Farxiga) 10 Mg Tablet, 5 MG PO DAILY, (Reported) Gabapentin (Gabapentin) 300 Mg Capsule, 300 MG PO TID, (Reported) Glipizide (Glipizide ER) 10 Mg Tab.er.24, 10 MG PO BID, (Reported) Levothyroxine Sodium (Synthroid) 75 Mcg Tablet, 75 MCG PO DAILY, (Reported) Liraglutide (Victoza 2-Topher) 0.6 Mg/0.1 Ml Pen.injctr, 1.8 MG SC DAILY, (Repor rob) Lisinopril (Lisinopril) 40 Mg Tablet, 40 MG PO DAILY, (Reported) Metformin HCl (Metformin HCl) 500 Mg Tablet, 500 MG PO BID, (Reported) Multivitamins (Thera M Plus Tablet) 1 Each Tablet, 1 TAB PO DAILY, (Reported) Netarsudil Mesylat/Latanoprost (Rocklatan 0.02%-0.005% Eye Drp) 2.5 Ml Drops, 1 DROP OU QHS, (Reported) [place]-3/Dha/Epa/Fish Oil (Fish Oil 1,000 mg Softgel) 1 Each Capsule, 1,000 MG PO QHS, (Reported) Omeprazole (Omeprazole) 20 Mg Capsule.dr, 20 MG PO DAILY, (Reported) Potassium Chloride (Potassium Chloride) 10 Meq Tablet.er, 10 MEQ PO BID, (Reported) Prednisone (Prednisone) 5 Mg Tablet, 5 MG PO DAILY, (Reported) Scheduled PRN Tramadol HCl (Tramadol HCl) 50 Mg Tablet, 50 MG PO Q4H PRN for PAIN, (Reported) Allergies Coded Allergies: Sulfa (Sulfonamide Antibiotics) (Verified Adverse Reaction, Unknown, hallucinations, 11/13/19) TRACIE ESCOBAR DO Nov 18, 2019 19:43
[2019-11-18] MEDS: ATORVASTATIN 20 MG TAB PO SCH (20:15)
[2019-11-18] MEDS: LATANOPROST 0.005% OPHTH SOLN 2.5 ML OU SCH (20:16)
[2019-11-18 21:50] VITALS: BP 124/52
== END 2019-11-18 21:53 | disposition short-term general hospital (02) | DRG 561 ==
LOC: EDBD 10:18 → M ED 10:18 → M ED INP 14:49 → INTOOBSV 14:49 → ENRESERV 15:02 → M MS5PR 16:05 → OBSVTOIN 11-18 08:21
PROVIDERS: ADMIT Internal Medicine; ATTEND Internal Medicine
DX: T84.022A Instability of internal right knee prosthesis, initial encounter (principal); R53.81 Other malaise; I10 Essential (primary) hypertension; E11.9 Type 2 diabetes mellitus without complications; E87.6 Hypokalemia; H40.9 Unspecified glaucoma; R29.6 Repeated falls; D64.9 Anemia, unspecified; K59.00 Constipation, unspecified; K21.9 Gastro-esophageal reflux disease without esophagitis; E03.9 Hypothyroidism, unspecified; Z66 Do not resuscitate; Z79.82 Long term (current) use of aspirin; Z79.84 Long term (current) use of oral hypoglycemic drugs; Z79.899 Other long term (current) drug therapy; Z88.2 Allergy status to sulfonamides; K64.8 Other hemorrhoids; Z96.642 Presence of left artificial hip joint; W06.XXXA Fall from bed, initial encounter; Y92.003 Bedroom of unspecified non-institutional (private) residence as the place of occurrence of the external cause; Y83.1 Surgical operation with implant of artificial internal device as the cause of abnormal reaction of the patient, or of later complication, without mention of misadventure at the time of the procedure

== ENCOUNTER 2019-11-24 14:19 | Inpatient (IN) | payer MEDICARE ==
[~2019-11-24] VITALS: Ht 160 cm; Wt 102.0 kg
[~2019-11-24 14:19] MED LIST: ACET-839 PO; ASPI-161 PO; ASPI81CH33 PO; ATOR1TAB21 PO; CALC-211 PO; CHLO25TA PO; COMB0.2S OU; D31000TA2 PO; FARX1TAB3 PO; GABA-843 PO; GLIP10TA18 PO; GLIP10TA6 PO; LISI40TA PO; METF-839 PO; NETA2.5D2 OU; OMEG10002 PO; OMEP-218 PO; POTA10TA14 PO; POTA20TA6 PO; PRED5TA PO; SYNT75TA PO; TRAM50TA2 PO; VICT18IN SC; VITMTA PO
[2019-11-24] MEDS ORDERED: MIRALAX *UNIT DOSE* 17GM PACKET PO PRN (15:15)
[2019-11-24 16:10] VITALS: BP 150/64
[2019-11-24] MEDS ORDERED: POTA20TA6 PO (16:28)
[2019-11-24] MEDS ORDERED: ACET1TAB55 PO (16:28)
[2019-11-24] MEDS ORDERED: PANT40TA29 PO (16:28)
[2019-11-24] MEDS ORDERED: DEXTROSE 50% 50 ML SYRINGE IV PRN (17:00)
[2019-11-24] MEDS ORDERED: GLUCOSE 4GM CHEW TABLET PO PRN (17:00)
[2019-11-24] MEDS ORDERED: GLUCAGON INJ 1MG VIAL SC PRN (17:00)
[2019-11-24] MEDS: OMEPRAZOLE 20 MG CAP PO SCH (17:13)
[2019-11-24] MEDS: metFORMIN (GLUCOPHAGE) 500 MG TAB PO SCH (17:22)
[2019-11-24] MEDS: HumaLOG INSULIN (NovoLOG) PER UNIT SC SCH (17:22)
[2019-11-24] MEDS: OMEGA-3 1000MG CAPSULE PO SCH (20:16)
[2019-11-24] MEDS: GABAPENTIN 300 MG CAP PO SCH (20:16)
[2019-11-24] MEDS: POTASSIUM CHLORIDE 10 MEQ SR TABLET PO SCH (20:17)
[2019-11-24] MEDS: glipiZIDE XL 5 MG TABCR PO SCH (20:17)
[2019-11-24] MEDS: ASPIRIN 81 MG ENTERIC TAB PO SCH (20:17)
[2019-11-24] MEDS: BRIMONIDINE 0.15% OPHTH SOLN 5 ML OU SCH (20:18)
[2019-11-24] MEDS: TIMOLOL MALEATE 0.5% OPHTH SOLN 5 ML OU SCH (20:18)
[2019-11-24] MEDS ORDERED: LATANOPROST 0.005% OPHTH SOLN 2.5 ML OU SCH (21:00)
[2019-11-25] MEDS: ACETAMINOPHEN 500 MG TAB PO PRN ×2 (02:31→20:25)
[2019-11-25] MEDS: LEVOTHYROXINE 75MCG TABLET (0.075MG) PO SCH (06:03)
[2019-11-25 06:34] VITALS: BP 148/80
[2019-11-25] MEDS: OMEPRAZOLE 20 MG CAP PO SCH (08:19)
[2019-11-25] MEDS: HumaLOG INSULIN (NovoLOG) PER UNIT SC SCH ×3 (08:19→17:33)
[2019-11-25] MEDS: glipiZIDE XL 5 MG TABCR PO SCH ×2 (08:20→20:25)
[2019-11-25] MEDS: predniSONE 5 MG TAB PO SCH (08:20)
[2019-11-25] MEDS: GABAPENTIN 300 MG CAP PO SCH ×3 (08:20→20:24)
[2019-11-25] MEDS: POTASSIUM CHLORIDE 10 MEQ SR TABLET PO SCH ×2 (08:20→20:26)
[2019-11-25] MEDS: metFORMIN (GLUCOPHAGE) 500 MG TAB PO SCH ×2 (08:20→17:32)
[2019-11-25] MEDS: ATORVASTATIN 20 MG TAB PO SCH (08:20)
[2019-11-25] MEDS: lisinopriL 40 MG TAB PO SCH (08:20)
[2019-11-25] MEDS: MULTIVITAMINS/MINERALS THERAP 1 TAB PO SCH (08:20)
[2019-11-25] MEDS: ASPIRIN 81 MG ENTERIC TAB PO SCH ×2 (08:21→20:26)
[2019-11-25] MEDS: TIMOLOL MALEATE 0.5% OPHTH SOLN 5 ML OU SCH (08:21)
[2019-11-25] MEDS: BRIMONIDINE 0.15% OPHTH SOLN 5 ML OU SCH (08:21)
--- NOTE | 2019-11-25 10:09 | HPEPDOC ---
Board Certified Family Physician Note DATE OF ADMISSION: 11.24.2019 DATE OF SERVICE: 11.24.2019 TIME OF ADMISSION: Please refer to physician's admission order. SOURCE OF ADMISSION INFORMATION: patient and daughter and medical records CHIEF COMPLAINT: Left hip girdle burning pain, discomfort, left foot drop, visual impairment left eye, poor nourishment with hypoalbuminemia HISTORY OF PRESENT ILLNESS: This is an 83 year old hypertensive diabetic lady with history of progressive arthritis leading to elective left total hip replacement on 11.11.2019. She was discharged home same day post operatively and subsequently fell twice on 11.11 and again on 11.12, disclocating her left hip in the process. Patient and daughter note she had new onset left lower extremity weakness post operatively that was evaluated along with the dislocation, a closed reduction achieved in the ER and patient was re evaluated by her Orthopedist Dr. Newsome who felt she was stabilized and should undergo comprehensive rehabilitation WBAT with posterior precautions. A left AFO and night splint were prescribed to assist with mobility activities. Patient admitted today for rehabilitation of left thr, left foot drop. REVIEW OF SYSTEMS: The following is a completed review of systems and has been reviewed. Review of systems otherwise unremarkable. PAIN: Patient self reports pain 3/5 at rest. EYES: impaired vision left eye secondary to elevated pressures. EARS, NOSE, & THROAT: No throat pain, or dysphagia, or rhinorrhea. CARDIOVASCULAR: Denies chest pain or palpitations. PULMONARY: Denies shortness of breath. GASTROINTESTINAL: Denies constipation/diarrhea. GENITOURINARY: regular output MUSCULOSKELETAL: aching pain bilateral hips NEUROLOGICAL: left foot drop HEMATOLOGICAL: easy bruising. SKIN: reportedly intact. PSYCHIATRIC: Unremarkable. All other review of systems found to be negative. PAST MEDICAL HISTORY: Hypertension Diabetes GERD. CAD -related DVT Hypercholesterolemia. Hypokalemia. Low back pain. Neck pain. Obesity. Osteoarthritis. Overactive bladder. Colon polyps Glaucoma PAST SURGICAL HISTORY: 1. Bilateral TKR 2. Vaginal hysterectomy with anterior, posterior vaginal repair 3. Bladder suspension 4. benign breast biopsy. 5. Cataract extraction with intraocular lens implant. 6 . Bilateral total knee arthroplasty. 7. Breast biopsy. 8. Right carpal tunnel release. 9. Neuroma surgery, left foot. 10. Cardiac cath 1994, 2004. ALLERGIES: Please see below. MEDICATIONS: Please see below. FAMILY HISTORY: Father 85 from suicide, Mother 60. SOCIAL HISTORY: non smoker, occasional alcohol, lives in 3 step entrance single story home, daughter and partner available to assist. DIET: regular. PHYSICAL EXAMINATION: VITAL SIGNS: Please see below. GENERAL: Pleasant and cooperative. No acute distress. Alert and oriented times three. HEENT: PERRL. Extraocular movements intact. Clear conjunctiva.No adenopathy or thyromegaly, full cervical range motion CARDIOVASCULAR: Regular rate and rhythm. II/VII SM. LUNGS: Clear to auscultation bilaterally. No wheezes. No rhonchi. ABDOMEN: Soft, nontender, nondistended. Positive bowel sounds. Normal active bowel sounds. NEUROLOGICAL: Alert and oriented times three. Cranial nerves II through XII grossly intact. Sensation grossly intact. Reflexes 2+ bilateral biceps, triceps brachioradialis, absent patellar and achilles tendon jerks. EXTREMITIES: 5\5 strength bilateral upper extremities. 5\5 strength right lower extremity knee extension, tibialis anterior, gastrocs, 5/5 strength in left lower extremity knee extension, 0/5 tibialis anterior, 0/5 EHL, 3/5 GS. left lower extremity swollen as compared to right with mild calf tenderness. SKIN: Burnside out resolving ecchymosis LABORATORY DATA: Please see below. IMAGING: CT 11/18/2019 noted for left hip arthroplasty hardware in place without evidence of acute fracture low-density fluid collections abduct to approximately 3 compartments possibly related to transient muscle hematoma FUNCTIONAL STATUS: Premorbid: Independent with all activities of daily life as well as mobility. On Admission: moderate assistance for lower body dressing, shower transfers, stairs. moderate assistance for bathing, supervision upper body dressing, modified assistance bed chair and wheelchair transfers, toilet transfers, ambulation. Minimum assistance for grooming. Supervision for memory and problem solving. Modified independence for social interaction, expression, comprehension, bowel and bladder. GOALS: Mod-I for mobility, self-care, comprehension and adherence to safety awareness protocols ASSESSMENT:83-year-old Female with past medical history of Bilateral TKR, JONAS, Bladder suspension, benign breast biopsy who presents status post history of progressive arthritis leading to elective left total hip replacement on 11.11.2019, with left hip pain and weakness of left lower extremity, increasing risk of recurrent falls. PLAN: 1. Admit to CRU comprehensive physical therapy, occupational therapy, rehabilitative nursing, and complex medical management. 2. Monitoring and adjustment of medications and diet to maintain control and optimize treatment of hypertension. 3. Monitoring and adjustment of medications to maintain control and for optimization of treatment of diabetes. 4. Continue home medications to maintain control and treatment of hypothyroidism and GERD . POST ADMISSION PHYSICIAN EVALUATION: Medical and functional status: Description of medical status, medical assessment: As above. Rehabilitation diagnosis and current and prior cold morbid medical conditions as above. Risk of complications and plans to mitigate them as above. Description of functional status current status is as above. Prior status as above. Status compared to preadmission: There are no clinically significant differences between the patient's current status and the information described on the preadmission screening document. Treatment plan anticipated: Treatment plan is as described above. Required disciplines including physical therapy, occupational therapy, others as noted above. Intensity of services: 3hours a day, 7 days a week. Special considerations: There are no specific special or safety considerations that would likely preclude immediate implementation of an intensive rehabilitation program or subsequently influence the plan of care. ATTESTATION: Considering all the information above, it is my best judgment that this patient requires intensive rehabilitation therapy as described above and an inpatient hospital environment due to the complexity of nursing, medical, and rehabilitation needs required by the patient. Furthermore, this patient can reasonably be expected to participate in an benefit from an inpatient rehabili tation stay with an interdisciplinary team approach to the delivery of rehabilitation care under the direction and supervision of rehabilitation physician. PROGNOSIS: Excellent. ESTIMATED LENGTH OF STAY: 7-10 days. PROJECTED DISCHARGE DESTINATION: Home with family support and any durable medical equipment required to increase functional safety and mobility. TIME SPENT COUNSELING AND COORDINATING INITIAL CARE: Greater than 90 minutes Vital Signs Vital Sign - Last 24 Hours 11/24/19 16:10 Temp 96.7 Pulse 62 Resp 18 B/P (MAP) 150/64 (92) Pulse Ox 96 O2 Delivery Room Air Laboratory Data Labs 24H Laboratory Tests 2 11/24/19 16:32: Bedside Glucose (Misc Panel) 113H FSBS Laboratory Tests Test 11/24/19 16:32 Range/Units Bedside Glucose (Misc Panel) 113 83-110 MG/DL Home Medications Scheduled Aspirin (Aspirin EC) 81 Mg Tablet., 81 MG PO BID, (Reported) Atorvastatin Calcium (Atorvastatin Calcium) 20 Mg Tablet, 20 MG PO DAILY, (Reported) Brimonidine Tartrate/Timolol (Combigan 0.2%-0.5% Eye Drops) 5 Ml Drops, 1 DROP OU BID, (Reported) Dapagliflozin Propanediol (Farxiga) 10 Mg Tablet, 5 MG PO DAILY, (Reported) Gabapentin (Gabapentin) 300 Mg Capsule, 300 MG PO TID, (Reported) Glipizide (Glipizide ER) 10 Mg Tab.er.24, 10 MG PO BID, (Reported) Levothyroxine Sodium (Synthroid) 75 Mcg Tablet, 75 MCG PO DAILY, (Reported) Liraglutide (Victoza 2-Topher) 0.6 Mg/0.1 Ml Pen.injctr, 1.8 MG SC DAILY, (Reported) Lisinopril (Lisinopril) 40 Mg Tablet, 40 MG PO DAILY, (Reported) Metformin HCl (Metformin HCl) 500 Mg Tablet, 500 MG PO BID, (Reported) Multivitamins (Thera M Plus Tablet) 1 Each Tablet, 1 TAB PO DAILY, (Reported) Netarsudil Mesylat/Latanoprost (Rocklatan 0.02%-0.005% Eye Drp) 2.5 Ml Drops, 1 DROP OU QHS, (Reported) [place]-3/Dha/Epa/Fish Oil (Fish Oil 1,000 mg Softgel) 1 Each Capsule, 1,000 MG PO QHS, (Reported) Omeprazole (Omeprazole) 20 Mg Capsule.dr, 20 MG PO DAILY, (Reported) Pantoprazole Sodium (Pantoprazole Sodium) 40 Mg Tablet.dr, 40 MG PO DAILY, (Reported) Potassium Chloride (Potassium Chloride) 20 Meq Tab.er.prt, 20 MEQ PO BID, (Reported) Prednisone (Prednisone) 5 Mg Tablet, 5 MG PO DAILY, (Reported) Scheduled PRN Acetaminophen (Acetaminophen) 325 Mg Tablet, 975 MG PO Q8H PRN for PAIN, (Reported) Allergies Coded Allergies: Sulfa (Sulfonamide Antibiotics) (Verified Adverse Reaction, Unknown, hallucinations, 11/13/19) A-FIB/CHADSVASC A-FIB History Current/History of A-Fib/PAF?: No Current PO Anticoag Therapy: No CASSANDRA PÉREZ MD Nov 24, 2019 19:26
[2019-11-25 14:00] VITALS: BP 141/66
--- NOTE | 2019-11-25 17:34 | HPEPDOC ---
[facility] Medical History & Physical Date of Admission Nov 25, 2019 Date of Service: Nov 25, 2019 Attending Physician: VINCE BARNES MD History and Physical CHIEF COMPLAINT: l hip dislocation HISTORY OF PRESENT ILLNESS: Mrs. Pacheco is an 83-year-old female with type 2 diabetes, hypothyroidism, hypertension, glaucoma, and recent hip surgery that was performed by Dr. Jerod M.D. of [facility] on 11/11/2019. After being discharged, patient developed multiple falls, eventually resulting in dislocation of the left hip. The left hip was reduced in the ED. Patient has shown deconditioning and debility after the posterior hip dislocation, was a good candidate for acute rehabilitation. She developed left foot drop. On review of records, but did not remember when it happened. Orthopedic surgery at [facility] recommended patient be evaluated by the operating surgeon. Subsequently patient was transferred to [facility] in [place] where she was deemed stable enough by the orthopedic service to undergo acute rehabilitation. She was admitted to ARU on 11/25/2019 PAST MEDICAL HISTORY: Glaucoma Hypercholesterolemia Hypertension Hemorrhoids Constipation GERD Arthritis Diabetes Hypothyroidism Claustrophobia PAST SURGICAL HISTORY: Left hip joint replacement surgery 11/11/19 Breast biopsy that was benign Hysterectomy Bladder suspension Knee replacement in 1999 and 2007 Carpal tunnel SOCIAL HISTORY: Patient denies smoking Patient reports occasional etoh us Patient denies illicit drug use FAMILY HISTORY: Father: age 85, suicide. Hx thyroid cancer. Mother: age 60. Hx of DM2 ALLERGIES: Please see below. REVIEW OF SYSTEMS: CONSTITUTIONAL: patient denies fevers, chills HEENT: patient denies blurred vision, loss of vision, headache,. CARDIOVASCULAR: patient denies chest pain, palpitations. RESPIRATORY: patient denies shortness of breath, cough, hemoptysis. GASTROINTESTINAL: patient denies abdominal pain, n/v/d, blood in stool. GENITOURINARY: patient denies dysuria, discharge. SKIN: patient denies rashes. MUSCULOSKELETAL: patient denies joint pain, neck pain. NEUROLOGICAL: Foot drop. PSYCHIATRIC: patient denies SI/HI. ENDOCRINE: patient denies polyuria, heat intolerance, cold intolerance. HEMATOLOGIC/LYMPHATIC: patient denies easy bruising.]. HOME MEDICATIONS: Please see below. PHYSICAL EXAMINATION: VITAL SIGNS: please see below General: NAD, comfortable HEENT: PERRLA, EOMI, sclerae clear Neck: supple, normal ROM, no JVD Respiratory: lungs CTAB, no wheeze, no rales, no crackles CVS: RRR, normal S1, S2, no murmurs Abdo: soft, no masses, no hepatosplenomegaly, BS+, no rebound tenderness Extremities: no edema, pulses 2+ MSK: no joint deformities, normal ROM Neuro: Left foot drop. CN2-12 intact. Psych: calm, cooperative, AAO x 3 LABORATORY DATA: See below. MICROBIOLOGY: Please see below. ASSESSMENT: A 3-year-old female with a history of hypertension, diabetes, and left total hip replacement on 11/11/2019 is admitted to ARU for rehabilitation; WBAT with posterior precautions. Hospitalist service was consulted for assistance with medical issues. . PLAN: # L hip total arthroplasty: ongoing rehab. pain well controlled # L foot drop: ongoing rehab, was assessed by her operating surgeon at [facility] # Debility: ARU #Hypertension: c/w home meds. c/w lisinopril 40 mg daily. BP appropriate. #hypothyroid: c/w synthroid 75 mcg daily #DM2: consistent carbohydrate diet. patient takes farxiga, glipizide, victoza at home. ASA/statin. Ok to continue with ISS, metformin, glipizide. Check A1c. #Glaucoma: c/w brimonidine, timolol, latanoprost. Takes netarsudil at home. Not on formulary. #GERD: omeprazole. #macrocytic anemi: b12, folate wnl. possibly related to ppi use. Check cbc. Vital Signs Vital Signs Date Time Temp Pulse Resp B/P (MAP) Pulse Ox O2 Delivery O2 Flow Rate FiO2 11/25/19 14:00 98.4 74 18 141/66 (91) 96 Room Air Laboratory Data Labs 24H Laboratory Tests 2 11/24/19 20:08: Bedside Glucose (Misc Panel) 180H 11/25/19 06:09: Bedside Glucose (Misc Panel) 178H 11/25/19 12:14: Bedside Glucose (Misc Panel) 159H 11/25/19 16:37: Bedside Glucose (Misc Panel) 224H Home Medications Scheduled Aspirin (Aspirin EC) 81 Mg Tablet.dr, 81 MG PO BID Atorvastatin Calcium (Atorvastatin Calcium) 20 Mg Tablet, 20 MG PO DAILY Brimonidine Tartrate/Timolol (Combigan 0.2%-0.5% Eye Drops) 5 Ml Drops, 1 DROP OU BID Dapagliflozin Propanediol (Farxiga) 10 Mg Tablet, 5 MG PO DAILY Gabapentin (Gabapentin) 300 Mg Capsule, 300 MG PO TID Glipizide (Glipizide ER) 10 Mg Tab.er.24, 10 MG PO BID Levothyroxine Sodium (Synthroid) 75 Mcg Tablet, 75 MCG PO DAILY Liraglutide (Victoza 2-Topher) 0.6 Mg/0.1 Ml Pen.injctr, 1.8 MG SC DAILY Lisinopril (Lisinopril) 40 Mg Tablet, 40 MG PO DAILY Metformin HCl (Metformin HCl) 500 Mg Tablet, 500 MG PO BID Multivitamins (Thera M Plus Tablet) 1 Each Tablet, 1 TAB PO DAILY Netarsudil Mesylat/Latanoprost (Rocklatan 0.02%-0.005% Eye Drp) 2.5 Ml Drops, 1 DROP OU QHS [place]-3/Dha/Epa/Fish Oil (Fish Oil 1,000 mg Softgel) 1 Each Capsule, 1,000 MG PO QHS Omeprazole (Omeprazole) 20 Mg Capsule.dr, 20 MG PO DAILY Pantoprazole Sodium (Pantoprazole Sodium) 40 Mg Tablet.dr, 40 MG PO DAILY Potassium Chloride (Potassium Chloride) 20 Meq Tab.er.prt, 20 MEQ PO BID Prednisone (Prednisone) 5 Mg Tablet, 5 MG PO DAILY Scheduled PRN Acetaminophen (Acetaminophen) 325 Mg Tablet, 975 MG PO Q8H PRN for PAIN Allergies Coded Allergies: Sulfa (Sulfonamide Antibiotics) (Verified Adverse Reaction, Unknown, hallucinations, 11/13/19) A-FIB/CHADSVASC A-FIB History Current/History of A-Fib/PAF?: No Current PO Anticoag Therapy: No VINCE BARNES MD Nov 25, 2019 17:34
[2019-11-25] MEDS: OMEGA-3 1000MG CAPSULE PO SCH (20:24)
[2019-11-25] MEDS: ROCKLATAN OU SCH (20:28)
[2019-11-25] MEDS: COMBIGAN OU SCH (20:28)
[2019-11-25] MEDS: EYE OU SCH ×2 (20:28)
[2019-11-25 21:46] VITALS: BP 147/71
[2019-11-26 05:46] VITALS: BP 153/67
[2019-11-26] MEDS: LEVOTHYROXINE 75MCG TABLET (0.075MG) PO SCH (06:28)
[2019-11-26 07:45] LABS: BASO % 0.8 % (0.0-1.0); EOS # 0.2 10^3/uL (0.0-0.5); EOS % 3.4 % (0.0-3.0); HEMATOCRIT 32.5 % (36.0-47.0); HEMOGLOBIN 10.1 g/dl (12.0-15.5); LYMPH # 1.4 10^3/uL (1.5-5.0); LYMPH % 29.4 % (24.0-44.0); MEAN CORPUSCULAR HEMOGLOBIN 32.8 pg (27.0-33.0); MEAN CORPUSCULAR HGB CONC 31.1 g/dl (32.0-36.5); MEAN CORPUSCULAR VOLUME 105.5 fl (80.0-96.0); MONO # 0.6 10^3/uL (0.0-0.8); MONO % 11.6 % (0.0-5.0); NEUTROPHILS # 2.6 10^3/uL (1.5-8.5); NEUTROPHILS % 54.6 % (36.0-66.0); PLATELET COUNT, AUTOMATED 353 10^3/uL (150-450); RED BLOOD COUNT 3.08 10^6/uL (4.00-5.40); WHITE BLOOD COUNT 4.8 10^3/uL (4.0-10.0)
[2019-11-26] MEDS: HumaLOG INSULIN (NovoLOG) PER UNIT SC SCH ×3 (07:59→17:44)
[2019-11-26] MEDS: ATORVASTATIN 20 MG TAB PO SCH (08:00)
[2019-11-26] MEDS: lisinopriL 40 MG TAB PO SCH (08:00)
[2019-11-26] MEDS: VITAMIN B COMPLEX/VIT C CAP PO SCH (08:00)
[2019-11-26] MEDS: glipiZIDE XL 5 MG TABCR PO SCH ×2 (08:00→20:34)
[2019-11-26] MEDS: ASPIRIN 81 MG ENTERIC TAB PO SCH ×2 (08:00→20:29)
[2019-11-26] MEDS: metFORMIN (GLUCOPHAGE) 500 MG TAB PO SCH ×2 (08:01→17:44)
[2019-11-26] MEDS: predniSONE 5 MG TAB PO SCH (08:01)
[2019-11-26] MEDS: OMEPRAZOLE 20 MG CAP PO SCH (08:01)
[2019-11-26] MEDS: GABAPENTIN 300 MG CAP PO SCH ×3 (08:01→20:29)
[2019-11-26] MEDS: MULTIVITAMINS/MINERALS THERAP 1 TAB PO SCH (08:01)
[2019-11-26] MEDS: EYE OU SCH ×3 (08:01→20:28)
[2019-11-26] MEDS: COMBIGAN OU SCH ×2 (08:01→20:28)
[2019-11-26] MEDS: POTASSIUM CHLORIDE 10 MEQ SR TABLET PO SCH ×2 (08:01→20:29)
[2019-11-26 08:02] VITALS: BP 140/67
[2019-11-26 08:08] LABS: ALBUMIN 2.8 GM/DL (3.2-5.2); ALT/SGPT 41 U/L (12-78); BILIRUBIN,TOTAL 0.4 MG/DL (0.2-1.0); BLOOD UREA NITROGEN 15 MG/DL (7-18); CARBON DIOXIDE LEVEL 31 MEQ/L (21-32); CHLORIDE LEVEL 107 MEQ/L (98-107); CREATININE FOR GFR 0.61 MG/DL (0.55-1.30); GLOMERULAR FILTRATION RATE > 60.0 (>32); GLUCOSE, FASTING 163 MG/DL (70-100); POTASSIUM SERUM 4.3 MEQ/L (3.5-5.1); SODIUM LEVEL 142 MEQ/L (136-145); TOTAL PROTEIN 6.1 GM/DL (6.4-8.2)
[2019-11-26 14:00] VITALS: BP 145/67
[2019-11-26 20:00] VITALS: BP 152/68
[2019-11-26] MEDS: ROCKLATAN OU SCH (20:28)
[2019-11-26] MEDS: OMEGA-3 1000MG CAPSULE PO SCH (20:29)
[2019-11-26] MEDS: ACETAMINOPHEN 500 MG TAB PO PRN (23:23)
[2019-11-27] MEDS: LEVOTHYROXINE 75MCG TABLET (0.075MG) PO SCH (06:04)
[2019-11-27 06:10] VITALS: BP 164/72
[2019-11-27] MEDS: ATORVASTATIN 20 MG TAB PO SCH (09:15)
[2019-11-27] MEDS: GABAPENTIN 300 MG CAP PO SCH ×3 (09:15→20:59)
[2019-11-27] MEDS: POTASSIUM CHLORIDE 10 MEQ SR TABLET PO SCH ×2 (09:15→20:59)
[2019-11-27] MEDS: VITAMIN B COMPLEX/VIT C CAP PO SCH (09:15)
[2019-11-27] MEDS: OMEPRAZOLE 20 MG CAP PO SCH (09:15)
[2019-11-27] MEDS: MULTIVITAMINS/MINERALS THERAP 1 TAB PO SCH (09:15)
[2019-11-27] MEDS: glipiZIDE XL 5 MG TABCR PO SCH ×2 (09:15→20:59)
[2019-11-27] MEDS: predniSONE 5 MG TAB PO SCH (09:16)
[2019-11-27] MEDS: ASPIRIN 81 MG ENTERIC TAB PO SCH ×2 (09:16→21:00)
[2019-11-27] MEDS: metFORMIN (GLUCOPHAGE) 500 MG TAB PO SCH ×2 (09:16→17:22)
[2019-11-27] MEDS: HumaLOG INSULIN (NovoLOG) PER UNIT SC SCH ×3 (09:17→17:22)
[2019-11-27] MEDS: lisinopriL 40 MG TAB PO SCH (09:17)
[2019-11-27] MEDS: COMBIGAN OU SCH ×2 (09:18→17:50)
[2019-11-27] MEDS: EYE OU SCH ×3 (09:18→21:00)
[2019-11-27] MEDS: ACETAMINOPHEN 500 MG TAB PO PRN (09:25)
--- NOTE | 2019-11-27 12:23 | IPNPDOC ---
PM&R Progress Note DATE OF SERVICE: Nov 27, 2019 Staff Internist Office Based Only Progress Note DATE OF ADMISSION: Nov 24, 2019 at 15:42 DATE OF SERVICE 11.27.2019 INPATIENT REHABILITATION ADMISSION DAY: #3 CHIEF COMPLAINT: Left hip girdle burning pain, discomfort, left foot drop, visual impairment left eye, poor nourishment with hypoalbuminemia. SUBJECTIVE: Patient is a 83-year-old female with ongoing healing from a dislocated left total hip replacement, was also found to be anemic. She is doing well acclimating to the program, has concerns over persisting distal extremity pain and notes that in the past she has had to take B12 and protein supplementation for nutritional issues, possible malabsorption. Swollen left lower extremity, definitely improved with ongoing wrapping and elevation. FUNCTIONAL STATUS: Patient participating well in therapy, occupational therapy with focus on attempt to achieve some recovery in the left lower extremity neuropraxia. Neuro reeducation including trial of NMES does not elicit much motor response. Work screen done on dynamic gait joint distance ambulation using the AFO, requiring standby to contact guard assistance. Beginning to work on uneven surfaces. ALLERGIES: See Below MEDICATIONS: Reviewed, see below. REVIEW OF SYSTEMS: The following is a completed review of systems and has been reviewed. Review of systems otherwise unremarkable. PAIN: Left Achilles and hip girdle pain, improving EYES: No recent vision changes EARS, NOSE, & THROAT: No throat pain, or dysphagia, or rhinorrhea CARDIOVASCULAR: Denies chest pain or palpitations PULMONARY: Denies shortness of breath, +cough GASTROINTESTINAL: Denies constipation/diarrhea GENITOURINARY: Stable MUSCULOSKELETAL: left hip pain NEUROLOGICAL: no focal deficits HEMATOLOGICAL: denies easy bruising SKIN: left hip incision PSYCHIATRIC: Unremarkable All other review of systems found to be negative. OBJECTIVE: VITAL SIGNS: Please see below. PHYSICAL EXAMINATION: GENERAL: Pleasant, less distress than previous days eager to regain strength and achieving goals for discharge. HEENT: Normocephalic, atraumatic. No facial droop. EOMI. No adenopathy or thyromegaly . Range of motion CARDIOVASCULAR: S1, S2, regular rate with II/VII SM. . LUNGS: Decreased breath sounds, no wheezes, rales or rhonchi. ABDOMEN: Soft, nontender, nondistended. Normoactive bowel sounds throughout. MUSCULOSKELETAL: MMT: 5/5 bilateral elbow flexion/ extension and knee extension, 5/5 right knee extension tibialis anterior, gastrocs, 0/5 left dorsiflexion, 2/5 plantar flexion from neutral, 5/ 5, knee extension NEUROLOGICAL: Alert and oriented times three. Answers all question appropriately. Sensation intact bilateral upper and lower extremities. SKIN: Intact anterior left hip incision covered with adhesive bandage, no surrounding erythema or warmth or drainage. LABORATORY DATA: Reviewed. Please see below. MICROBIOLOGY: Please see below. ASSESSMENT AND PLAN: DIAGNOSES Status post left anterior THR with subsequent traumatic dislocation, secondary fall. Hematoma Left lower extremity neuropraxia. Hypertension. Diabetes. Anemia. CAD. HLD. Low back pain. Neck pain. Obesity. Osteoarthritis. Overactive bladder. Colon polyps Glaucoma. History of bilateral TKR, right CTR, left foot neuroma surgery, cardiac cath 2. This is an 83-year-old hypertensive diabetic lady with history of progressive arthritis leading to elective left total hip replacement 9.29, subsequent dislocation led to an ER visit 10.1 requiring closed reduction. Evidently since postop there is been a left foot drop with minimal response thus far to Electrical stimulation, she requires use of AFO for safety and optimization of gait. 1. Status post left anterior THR with subsequent traumatic dislocation after a fall, continue comprehensive PT, OT, Rehabilitative nursing for optimal advancement of gait, mobility, strengthening, stretching, maintaining range of motion in all 4 limbs, ambulating with assistive device. 2. 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 Continue trial of electrical stimulation, may need electrodiagnostic studies for further confirmation of extent of nerve damage and anticipated potential recovery. She is well-controlled diabetic, hemoglobin A1c of 7 with no distal sensory changes or intrinsic Atrophy noted. Thus if there is a component of diabetic neuropathy it would be considered mild 3. CVD Hypertension. CAD HLD . Continue appropriate medications, monitoring vital signs, response to exertion and therapeutic interventions 4. Diabetes appears well controlled. Continue usual dietary modifications and medications 5. Anemia and hypoalbuminemia. Provide supplementation and nutritional education 6. Osteoarthritis. Low back pain. Neck pain seems to be responding to some therapeutic modalities. Continue with education on how to continue to modify home program 7. Overactive bladder. Rehabilitative nursing G training protocol consideration of appropriate medications as indicated 8. GI Obesity Colon polyps- nutritional education and monitoring for any GI changes associated with elimination 9. Glaucoma continue with usual prescribed neurological medications and encouraged follow-up ANTICIPATED DISPOSITION home with family TIME SPENT: Chart Review, examination and documentation 40 minutes. Allergies Coded Allergies: Sulfa (Sulfonamide Antibiotics) (Verified Adverse Reaction, Unknown, hallucinations, 11/13/19) Vital Signs Vital Signs Date Time Temp Pulse Resp B/P (MAP) Pulse Ox O2 Delivery O2 Flow Rate FiO2 11/27/19 06:10 97.9 64 18 164/72 (102) 96 Room Air Laboratory Data Labs 24H Laboratory Tests 2 11/26/19 16:54: Bedside Glucose (Misc Panel) 197H 11/26/19 19:33: Bedside Glucose (Misc Panel) 175H 11/27/19 05:23: Bedside Glucose (Misc Panel) 152H 11/27/19 11:45: Bedside Glucose (Misc Panel) 304H Current Medications Current Medications Current Medications Medications (Trade) Dose Ordered Sig/Yovanny Route PRN Reason Start Time Stop Time Status Last Admin Dose Admin Acetaminophen (Tylenol Tab) 1,000 mg Q6HP PRN PO MILD PAIN (PS 1-4) 11/24/19 15:15 11/27/19 09:25 Aspirin (Ecotrin) 81 mg BID PO 11/24/19 21:00 11/27/19 09:16 Atorvastatin Calcium (Lipitor) 20 mg DAILY PO 11/25/19 09:00 11/27/19 09:15 Brimonidine Tartrate (Alphagan P 0.15%) 1 drop BID OU 11/24/19 21:00 11/25/19 16:10 DC 11/25/19 08:21 Dextrose (Dextrose 50%) 25 ml ASDIRECTED PRN IV SEE LABEL COMMENTS 11/24/19 17:00 Fish Oil ([place]-3 (1000mg)) 1 cap QHS PO 11/24/19 21:00 11/26/19 20:29 Gabapentin (Neurontin) 300 mg TID PO 11/24/19 21:00 11/27/19 09:15 Glipizide (Glucotrol Xl) 10 mg BID PO 11/24/19 21:00 11/27/19 09:15 Glucagon (Glucagon) 1 mg ASDIRECTED PRN SC SEE LABEL COMMENTS 11/24/19 17:00 Glucose (Glucose) 16 GM ASDIRECTED PRN PO SEE LABEL COMMENTS 11/24/19 17:00 Home Med (Med Rec Complete!) ASDIRECTED XX 11/24/19 16:30 11/24/19 16:30 DC Insulin Human Lispro (HumaLOG INSULIN) SEE PROTOCOL TABLE AC SC 11/24/19 17:30 11/27/19 09:17 Latanoprost (Xalatan 0.005% Op Soln) 1 drop QHS OU 11/24/19 21:00 11/25/19 16:08 DC 11/24/19 20:18 Levothyroxine Sodium (Synthroid) 75 mcg DAILY@0600 PO 11/25/19 06:00 11/27/19 06:04 Lisinopril (Prinivil) 40 mg DAILY PO 11/25/19 09:00 11/27/19 09:17 Metformin HCl (Glucophage) 500 mg BIDWM PO 11/24/19 18:00 11/27/19 09:16 Miscellaneous (Unresolved Patient Own Med Order) SEE LABEL COMMENTS DAILY XX 11/25/19 09:00 11/26/19 08:15 DC Multivitamins (Theragram-M) 1 tab DAILY PO 11/25/19 09:00 11/27/19 09:15 Omeprazole (PriLOSEC) 20 mg DAILY PO 11/24/19 09:00 11/27/19 09:15 Patient Own Medication (Patient'S Own Med) Combigan 0.2%-0.5% eye dr... BID OU 11/25/19 21:00 11/27/19 09:18 Patient Own Medication (Patient'S Own Med) Rocklatan 0.02%-0.05% 1 ELIZABETH... QHS OU 11/25/19 21:00 11/26/19 20:28 Polyethylene Glycol (Miralax) 1 pkt DAILY PRN PO CONSTIPATION 11/24/19 15:15 Potassium Chloride (Micro-K Extencaps) 20 meq BID PO 11/24/19 21:00 11/27/19 09:15 Prednisone (Deltasone) 5 mg DAILY PO 11/25/19 09:00 11/27/19 09:16 Timolol Maleate (Timoptic 0.5% Ophth Stefanie) 1 drop BID OU 11/24/19 21:00 11/25/19 16:10 DC 11/25/19 08:21 Vitamin B Complex/ Vitamin C (Therapeutic B Complex w/C) 1 cap DAILY PO 11/26/19 09:00 11/27/19 09:15 CASSANDRA PÉREZ MD Nov 27, 2019 12:23
[2019-11-27 14:00] VITALS: BP 116/53
[2019-11-27] MEDS: ASCORBIC ACID 250 MG TAB PO SCH (17:21)
[2019-11-27] MEDS: FERROUS GLUCONATE 324 MG TAB PO SCH (17:22)
[2019-11-27 20:00] VITALS: BP 156/70
[2019-11-27] MEDS: OMEGA-3 1000MG CAPSULE PO SCH (20:59)
[2019-11-27] MEDS: ROCKLATAN OU SCH (21:00)
[2019-11-28 05:53] VITALS: BP 150/76
[2019-11-28] MEDS: LEVOTHYROXINE 75MCG TABLET (0.075MG) PO SCH (06:02)
[2019-11-28] MEDS: HumaLOG INSULIN (NovoLOG) PER UNIT SC SCH ×3 (07:42→17:26)
[2019-11-28] MEDS: ACETAMINOPHEN 500 MG TAB PO PRN ×2 (07:45→20:16)
[2019-11-28] MEDS: EYE OU SCH ×5 (09:00→20:15)
[2019-11-28] MEDS: COMBIGAN OU SCH ×4 (09:00→18:57)
[2019-11-28] MEDS: ASCORBIC ACID 250 MG TAB PO SCH (10:17)
[2019-11-28] MEDS: POTASSIUM CHLORIDE 10 MEQ SR TABLET PO SCH ×2 (10:17→20:15)
[2019-11-28] MEDS: glipiZIDE XL 5 MG TABCR PO SCH ×2 (10:18→20:15)
[2019-11-28] MEDS: ASPIRIN 81 MG ENTERIC TAB PO SCH ×2 (10:18→20:15)
[2019-11-28] MEDS: predniSONE 5 MG TAB PO SCH (10:19)
[2019-11-28] MEDS: OMEPRAZOLE 20 MG CAP PO SCH (10:19)
[2019-11-28] MEDS: VITAMIN B COMPLEX/VIT C CAP PO SCH (10:20)
[2019-11-28] MEDS: GABAPENTIN 300 MG CAP PO SCH ×3 (10:20→20:15)
[2019-11-28] MEDS: ATORVASTATIN 20 MG TAB PO SCH (10:20)
[2019-11-28] MEDS: MULTIVITAMINS/MINERALS THERAP 1 TAB PO SCH (10:20)
[2019-11-28] MEDS: lisinopriL 40 MG TAB PO SCH (10:21)
--- NOTE | 2019-11-28 10:31 | IPNPDOC ---
PM&R Progress Note DATE OF SERVICE: Nov 28, 2019 Program Analyst Progress Note DATE OF ADMISSION: Nov 24, 2019 at 15:42 DATE OF SERVICE 11.28.2019 INPATIENT REHABILITATION ADMISSION DAY: #[4] CHIEF COMPLAINT: Left hip girdle burning pain, discomfort, left foot drop, visual impairment left eye, poor nourishment with hypoalbuminemia, anemia. SUBJECTIVE: Patient is a 83-year-old female with ongoing healing from a dislocated anterior left total hip replacement, was also found to be anemic. She is doing well acclimating to the program, has concerns over persisting distal extremity pain and notes that in the past she has had to take B12 and protein supplementation for nutritional issues, possible malabsorption. Swollen left lower extremity, definitely improved with ongoing wrapping and elevation, has little response or return of dorsiflexion thus far with various modalities. Apparently EMG/NCV not available in house, will need to be arranged post discharge to help with prognostic planning. FUNCTIONAL STATUS: Patient participating well in therapy, occupational therapy with focus on attempt to achieve some recovery in the left lower extremity neuropraxia. Neuro reeducation including trial of NMES does not elicit much motor response. Work screen done on dynamic gait joint distance ambulation using the AFO, requiring standby to contact guard assistance. Beginning to work on uneven surfaces. ALLERGIES: See Below MEDICATIONS: Reviewed, see below. Added Vitamin supplementation. REVIEW OF SYSTEMS: The following is a completed review of systems and has been reviewed. Review of systems otherwise unremarkable. PAIN: Left Achilles and hip girdle pain, improving EYES: No recent vision changes EARS, NOSE, & THROAT: No throat pain, or dysphagia, or rhinorrhea CARDIOVASCULAR: Denies chest pain or palpitations PULMONARY: Denies shortness of breath, +cough GASTROINTESTINAL: Denies constipation/diarrhea GENITOURINARY: Stable MUSCULOSKELETAL: left hip pain NEUROLOGICAL: no focal deficits HEMATOLOGICAL: denies easy bruising SKIN: left hip incision PSYCHIATRIC: Unremarkable All other review of systems found to be negative. OBJECTIVE: VITAL SIGNS: Please see below. PHYSICAL EXAMINATION: GENERAL: Pleasant, no distress. HEENT: Normocephalic, atraumatic. No facial droop. EOMI. No adenopathy or thyromegaly . Full cervical range of motion CARDIOVASCULAR: S1, S2, regular rate with II/VII SM. LUNGS: Decreased breath sounds, no wheezes, rales or rhonchi. ABDOMEN: Soft, nontender, nondistended. Normoactive bowel sounds throughout. MUSCULOSKELETAL: MMT: 5/5 bilateral elbow flexion/ extension and knee extension, 5/5 right knee extension tibialis anterior, gastrocs, 0/5 left dorsiflexion, 2/5 plantar flexion from neutral, 5/ 5, knee extension and flexion. Tenderness and swelling left lateral popliteal region with point tenderness above fibular head. NEUROLOGICAL: Alert and oriented times three. Answers all question appropriately. Sensation intact bilateral upper and lower extremities, with decrease left L5 distribution. SKIN: Intact anterior left hip incision covered with adhesive bandage, no surrounding erythema or warmth or drainage. LABORATORY DATA: Reviewed. Please see below. MICROBIOLOGY: Please see below. ASSESSMENT AND PLAN: DIAGNOSES Status post left anterior THR with subsequent traumatic dislocation, secondary fall. Hematoma Left lower extremity neuropraxia. Hypertension. Diabetes. Anemia. CAD. HLD. Low back pain. Neck pain. Obesity. Osteoarthritis. Overactive bladder. Colon polyps Glaucoma. History of bilateral TKR, right CTR, left foot neuroma surgery, cardiac cath 2. This is an 83-year-old hypertensive diabetic lady with history of progressive arthritis leading to elective left total hip replacement 9.29, subsequent dislocation led to an ER visit 10.1 requiring closed reduction. Evidently since postop there is been a left foot drop with minimal response thus far to Electrical stimulation, she requires use of AFO for safety and optimization of gait. 1. Status post left anterior THR with subsequent traumatic dislocation after a fall, continue comprehensive PT, OT, Rehabilitative nursing for optimal advancement of gait, mobility, strengthening, stretching, maintaining range of motion in all 4 limbs, ambulating with assistive device. Wound monitoring. 2. 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 Continue trial of electrical stimulation, will need outpatient electrodiagnostic studies for further confirmation of extent of nerve damage and anticipated potential recovery. She is well-controlled diabetic, hemoglobin A1c of 7 with no distal sensory changes or intrinsic Atrophy noted. Thus if there is a component of diabetic neuropathy it would be considered mild 3. CVD Hypertension. CAD HLD . Continue appropriate medications, monitoring vital signs, response to exertion and therapeutic interventions 4. Diabetes appears well controlled. Continue usual dietary modifications and medications 5. Anemia and hypoalbuminemia. Provide supplementation and nutritional education 6. Osteoarthritis. Low back pain. Neck pain seems to be responding to some therapeutic modalities. Continue with education on how to continue to modify home program 7. Overactive bladder. Rehabilitative nursing G training protocol consideration of appropriate medications as indicated 8. GI Obesity Colon polyps- nutritional education and monitoring for any GI changes associated with elimination 9. Glaucoma continue with usual prescribed neurological medications and encouraged follow-up ANTICIPATED DISPOSITION home with family TIME SPENT: Chart Review, examination and documentation 40 minutes. Allergies Coded Allergies: Sulfa (Sulfonamide Antibiotics) (Verified Adverse Reaction, Unknown, hallucinations, 11/13/19) Vital Signs Vital Signs Date Time Temp Pulse Resp B/P (MAP) Pulse Ox O2 Delivery O2 Flow Rate FiO2 11/28/19 05:53 98.8 62 18 150/76 (100) 96 Room Air Laboratory Data Labs 24H Laboratory Tests 2 11/27/19 11:45: Bedside Glucose (Misc Panel) 304H 11/27/19 16:38: Bedside Glucose (Misc Panel) 116H 11/27/19 19:33: Bedside Glucose (Misc Panel) 184H 11/28/19 05:11: Bedside Glucose (Misc Panel) 143H Current Medications Current Medications Current Medications Medications (Trade) Dose Ordered Sig/Yovanny Route PRN Reason Start Time Stop Time Status Last Admin Dose Admin Acetaminophen (Tylenol Tab) 1,000 mg Q6HP PRN PO MILD PAIN (PS 1-4) 11/24/19 15:15 11/28/19 07:45 Ascorbic Acid (Vitamin C) 250 mg DAILY PO 11/27/19 09:00 11/28/19 10:17 Aspirin (Ecotrin) 81 mg BID PO 11/24/19 21:00 11/28/19 10:18 Atorvastatin Calcium (Lipitor) 20 mg DAILY PO 11/25/19 09:00 11/28/19 10:20 Brimonidine Tartrate (Alphagan P 0.15%) 1 drop BID OU 11/24/19 21:00 11/25/19 16:10 DC 11/25/19 08:21 Dextrose (Dextrose 50%) 25 ml ASDIRECTED PRN IV SEE LABEL COMMENTS 11/24/19 17:00 Ferrous Gluconate (Fergon) 324 mg ACS PO 11/27/19 17:30 11/27/19 17:22 Fish Oil ([place]-3 (1000mg)) 1 cap QHS PO 11/24/19 21:00 11/27/19 20:59 Gabapentin (Neurontin) 300 mg TID PO 11/24/19 21:00 11/28/19 10:20 Glipizide (Glucotrol Xl) 10 mg BID PO 11/24/19 21:00 11/28/19 10:18 Glucagon (Glucagon) 1 mg ASDIRECTED PRN SC SEE LABEL COMMENTS 11/24/19 17:00 Glucose (Glucose) 16 GM ASDIRECTED PRN PO SEE LABEL COMMENTS 11/24/19 17:00 Home Med (Med Rec Complete!) ASDIRECTED XX 11/24/19 16:30 11/24/19 16:30 DC Insulin Human Lispro (HumaLOG INSULIN) SEE PROTOCOL TABLE AC SC 11/24/19 17:30 11/28/19 07:42 Latanoprost (Xalatan 0.005% Op Soln) 1 drop QHS OU 11/24/19 21:00 11/25/19 16:08 DC 11/24/19 20:18 Levothyroxine Sodium (Synthroid) 75 mcg DAILY@0600 PO 11/25/19 06:00 11/28/19 06:02 Lisinopril (Prinivil) 40 mg DAILY PO 11/25/19 09:00 11/28/19 10:21 Metformin HCl (Glucophage) 500 mg BIDWM PO 11/24/19 18:00 11/27/19 17:22 Miscellaneous (Unresolved Patient Own Med Order) SEE LABEL COMMENTS DAILY XX 11/25/19 09:00 11/26/19 08:15 DC Multivitamins (Theragram-M) 1 tab DAILY PO 11/25/19 09:00 11/28/19 10:20 Omeprazole (PriLOSEC) 20 mg DAILY PO 11/24/19 09:00 11/28/19 10:19 Patient Own Medication (Patient'S Own Med) Comblkuas 0.2%-0.5% eye BID OU 11/25/19 21:00 11/27/19 17:31 DC 11/27/19 09:18 Patient Own Medication (Patient'S Own Med) Combigan 0.2%-0.5% eye . BID@0900,1800 OU 11/27/19 18:00 11/27/19 17:50 Patient Own Medication (Patient'S Own Med) Rocklatan 0.02%-0.05% 1 ELIZABETH... QHS OU 11/25/19 21:00 11/27/19 21:00 Polyethylene Glycol (Miralax) 1 pkt DAILY PRN PO CONSTIPATION 11/24/19 15:15 Potassium Chloride (Micro-K Extencaps) 20 meq BID PO 11/24/19 21:00 11/28/19 10:17 Prednisone (Deltasone) 5 mg DAILY PO 11/25/19 09:00 11/28/19 10:19 Timolol Maleate (Timoptic 0.5% Ophth Stefanie) 1 drop BID OU 11/24/19 21:00 11/25/19 16:10 DC 11/25/19 08:21 Vitamin B Complex/ Vitamin C (Therapeutic B Complex w/C) 1 cap DAILY PO 11/26/19 09:00 11/28/19 10:20 CASSANDRA PÉREZ MD Nov 28, 2019 10:31
[2019-11-28] MEDS: metFORMIN (GLUCOPHAGE) 500 MG TAB PO SCH ×2 (10:39→17:30)
[2019-11-28 14:00] VITALS: BP 146/70
[2019-11-28] MEDS: FERROUS GLUCONATE 324 MG TAB PO SCH (17:26)
[2019-11-28] MEDS: ROCKLATAN OU SCH (20:15)
[2019-11-28] MEDS: OMEGA-3 1000MG CAPSULE PO SCH (20:15)
[2019-11-28 20:30] VITALS: BP 140/74
[2019-11-29 05:32] VITALS: BP 144/67
[2019-11-29] MEDS: LEVOTHYROXINE 75MCG TABLET (0.075MG) PO SCH (06:25)
[2019-11-29] MEDS: GABAPENTIN 300 MG CAP PO SCH ×3 (07:43→20:37)
[2019-11-29] MEDS: HumaLOG INSULIN (NovoLOG) PER UNIT SC SCH ×3 (07:43→16:46)
[2019-11-29] MEDS: glipiZIDE XL 5 MG TABCR PO SCH ×2 (07:44→20:38)
[2019-11-29] MEDS: VITAMIN B COMPLEX/VIT C CAP PO SCH (07:44)
[2019-11-29] MEDS: OMEPRAZOLE 20 MG CAP PO SCH (07:44)
[2019-11-29] MEDS: ATORVASTATIN 20 MG TAB PO SCH (07:44)
[2019-11-29] MEDS: predniSONE 5 MG TAB PO SCH (07:44)
[2019-11-29] MEDS: MULTIVITAMINS/MINERALS THERAP 1 TAB PO SCH (07:44)
[2019-11-29] MEDS: lisinopriL 40 MG TAB PO SCH (07:44)
[2019-11-29] MEDS: metFORMIN (GLUCOPHAGE) 500 MG TAB PO SCH ×2 (07:45→16:45)
[2019-11-29] MEDS: ASCORBIC ACID 250 MG TAB PO SCH (07:45)
[2019-11-29] MEDS: POTASSIUM CHLORIDE 10 MEQ SR TABLET PO SCH ×2 (07:45→20:38)
[2019-11-29] MEDS: ASPIRIN 81 MG ENTERIC TAB PO SCH ×2 (07:45→20:37)
[2019-11-29] MEDS: COMBIGAN OU SCH ×2 (10:37→16:47)
[2019-11-29] MEDS: EYE OU SCH ×3 (10:37→20:39)
[2019-11-29 14:00] VITALS: BP 153/67
[2019-11-29] MEDS: FERROUS GLUCONATE 324 MG TAB PO SCH (16:45)
[2019-11-29] MEDS: OMEGA-3 1000MG CAPSULE PO SCH (20:37)
[2019-11-29] MEDS: ROCKLATAN OU SCH (20:39)
[2019-11-29] MEDS: ACETAMINOPHEN 500 MG TAB PO PRN (20:45)
[2019-11-29 21:27] VITALS: BP 134/65
[2019-11-30 06:04] VITALS: BP 159/68
[2019-11-30] MEDS: LEVOTHYROXINE 75MCG TABLET (0.075MG) PO SCH (06:28)
[2019-11-30] MEDS: ATORVASTATIN 20 MG TAB PO SCH (07:58)
[2019-11-30] MEDS: MULTIVITAMINS/MINERALS THERAP 1 TAB PO SCH (07:58)
[2019-11-30] MEDS: GABAPENTIN 300 MG CAP PO SCH ×3 (07:58→21:24)
[2019-11-30] MEDS: HumaLOG INSULIN (NovoLOG) PER UNIT SC SCH ×3 (07:58→17:23)
[2019-11-30] MEDS: OMEPRAZOLE 20 MG CAP PO SCH (07:58)
[2019-11-30] MEDS: lisinopriL 40 MG TAB PO SCH (07:58)
[2019-11-30] MEDS: predniSONE 5 MG TAB PO SCH (07:59)
[2019-11-30] MEDS: metFORMIN (GLUCOPHAGE) 500 MG TAB PO SCH ×2 (07:59→17:22)
[2019-11-30] MEDS: ASPIRIN 81 MG ENTERIC TAB PO SCH ×2 (07:59→21:24)
[2019-11-30] MEDS: ASCORBIC ACID 250 MG TAB PO SCH (07:59)
[2019-11-30] MEDS: glipiZIDE XL 5 MG TABCR PO SCH ×2 (07:59→21:23)
[2019-11-30] MEDS: VITAMIN B COMPLEX/VIT C CAP PO SCH (07:59)
[2019-11-30] MEDS: POTASSIUM CHLORIDE 10 MEQ SR TABLET PO SCH ×2 (08:00→21:24)
[2019-11-30] MEDS: COMBIGAN OU SCH ×2 (08:01→17:24)
[2019-11-30] MEDS: EYE OU SCH ×3 (08:01→21:23)
[2019-11-30 14:00] VITALS: BP 125/60
[2019-11-30] MEDS: FERROUS GLUCONATE 324 MG TAB PO SCH (17:23)
[2019-11-30 20:00] VITALS: BP 138/50
[2019-11-30] MEDS: ROCKLATAN OU SCH (21:23)
[2019-11-30] MEDS: OMEGA-3 1000MG CAPSULE PO SCH (21:23)
[2019-11-30] MEDS: ACETAMINOPHEN 500 MG TAB PO PRN (21:26)
[2019-12-01 05:52] VITALS: BP 152/70
[2019-12-01] MEDS: LEVOTHYROXINE 75MCG TABLET (0.075MG) PO SCH (06:20)
[2019-12-01] MEDS: predniSONE 5 MG TAB PO SCH (08:25)
[2019-12-01] MEDS: ASCORBIC ACID 250 MG TAB PO SCH (08:25)
[2019-12-01] MEDS: HumaLOG INSULIN (NovoLOG) PER UNIT SC SCH ×3 (08:25→17:05)
[2019-12-01] MEDS: ASPIRIN 81 MG ENTERIC TAB PO SCH ×2 (08:25→20:51)
[2019-12-01] MEDS: VITAMIN B COMPLEX/VIT C CAP PO SCH (08:25)
[2019-12-01] MEDS: GABAPENTIN 300 MG CAP PO SCH ×3 (08:26→20:50)
[2019-12-01] MEDS: metFORMIN (GLUCOPHAGE) 500 MG TAB PO SCH ×2 (08:26→17:05)
[2019-12-01] MEDS: ATORVASTATIN 20 MG TAB PO SCH (08:26)
[2019-12-01] MEDS: MULTIVITAMINS/MINERALS THERAP 1 TAB PO SCH (08:26)
[2019-12-01] MEDS: POTASSIUM CHLORIDE 10 MEQ SR TABLET PO SCH ×2 (08:26→20:51)
[2019-12-01] MEDS: OMEPRAZOLE 20 MG CAP PO SCH (08:26)
[2019-12-01] MEDS: lisinopriL 40 MG TAB PO SCH (08:26)
[2019-12-01] MEDS: glipiZIDE XL 5 MG TABCR PO SCH ×2 (08:27→20:50)
[2019-12-01] MEDS: EYE OU SCH ×3 (10:57→20:51)
[2019-12-01] MEDS: COMBIGAN OU SCH ×2 (10:57→17:06)
[2019-12-01 14:00] VITALS: BP 149/69
[2019-12-01] MEDS: FERROUS GLUCONATE 324 MG TAB PO SCH (17:05)
--- NOTE | 2019-12-01 17:06 | IPNPDOC ---
PM&R Progress Note DATE OF SERVICE: Dec 01, 2019 Inventory Control Clerk Progress Note DATE OF ADMISSION: Nov 24, 2019 at 15:42 DATE OF SERVICE 12.01.2019 INPATIENT REHABILITATION ADMISSION DAY: #7 CHIEF COMPLAINT: Left hip girdle burning pain, discomfort, left foot drop, visual impairment left eye, poor nourishment with hypoalbuminemia. SUBJECTIVE: Patient is an 84 year-old with ongoing healing from a dislocated left total hip replacement, was also found to be anemic. She is doing well acclimating to the program, has concerns over persisting distal extremity pain and notes that in the past she has had taking B12 and protein supplementation for nutritional issues. This has been resumed, she seems to have more energy and mobility is increasing this week. She had some concern over an area in the incision opened up, small area surgical applied drainage, redness or warmth noted. FUNCTIONAL STATUS: Patient participating well in therapy, occupational therapy with focus on attempt to achieve some recovery in the left lower extremity neuropraxia. Neuro reeducation including trial of NMES does not elicit much motor response. Patient M 1120 feet with rolling walker with modified independence with AFO, has been cleared for room privileges. ALLERGIES: See Below MEDICATIONS: Reviewed, see below. REVIEW OF SYSTEMS: The following is a completed review of systems and has been reviewed. Review of systems otherwise unremarkable. PAIN: Left Achilles and hip girdle pain, improving EYES: No recent vision changes EARS, NOSE, & THROAT: No throat pain, or dysphagia, or rhinorrhea CARDIOVASCULAR: Denies chest pain or palpitations PULMONARY: Denies shortness of breath, +cough GASTROINTESTINAL: Denies constipation/diarrhea GENITOURINARY: incontinence (chronic) MUSCULOSKELETAL: left hip pain NEUROLOGICAL: no focal deficits HEMATOLOGICAL: denies easy bruising SKIN: left hip incision PSYCHIATRIC: Unremarkable All other review of systems found to be negative. OBJECTIVE: VITAL SIGNS: Please see below. PHYSICAL EXAMINATION: GENERAL: Pleasant, eager to regain strength and achieving goals for discharge. HEENT: Normocephalic, atraumatic. No facial droop. EOMI. No adenopathy or thyromegaly . CARDIOVASCULAR: S1, S2, regular rate with II/VII SM. . LUNGS: Decreased breath sounds, no wheezes, rales or rhonchi. ABDOMEN: Soft, nontender, nondistended. Normoactive bowel sounds throughout. MUSCULOSKELETAL: MMT: 5/5 bilateral elbow flexion/ extension and knee extension, NEUROLOGICAL: Alert and oriented times three. Answers all question appropriately. Sensation intact bilateral upper and lower extremities. SKIN: Intact anterior left hip dry with 1 cm mid incision area of slight opening, no drainage, no surrounding erythema or warmth or drainage. LABORATORY DATA: Reviewed. Please see below. Hemoglobin 10.1, hematocrit 32.5 ASSESSMENT AND PLAN: DIAGNOSES Status post left anterior THR with subsequent traumatic dislocation, secondary fall. Hematoma Left lower extremity neuropraxia. Hypertension. Diabetes. Anemia. CAD. HLD. Low back pain. Neck pain. Obesity. Osteoarthritis. Overactive bladder. Colon polyps Glaucoma. History of, bilateral TKR, right CTR, left foot neuroma surgery, cardiac cath 2. This is an 83-year-old hypertensive diabetic lady with history of progressive arthritis leading to elective left total hip replacement 9.29, subsequent dislocation led to an ER visit 10.1 requiring closed reduction. Evidently since postop there is been a left foot drop with minimal response thus far to Electrical stimulation, she requires use of AFO for safety and optimization of gait. 1. Status post left anterior THR with subsequent traumatic dislocation, continue comprehensive PT, OT rebuilds of nursing for optimal advancement of gait, mobility, strengthening, stretching, maintaining range of motion in all 4 limbs, ambulating with assistive device. 2. Left lower extremity neuropraxia. Continue trial of electrical stimulation, may need electrodiagnostic studies for further confirmation of extent of nerve damage and anticipated potential recovery. She is well-controlled diabetic, hemoglobin A1c of 7 with no distal sensory changes or intrinsic Atrophy noted. Thus if there is a component of diabetic neuropathy it would be considered mild 3. CVD Hypertension. CAD HLD . Continue appropriate medications, monitoring vital signs, response to exertion and therapeutic interventions 4. Diabetes appears well controlled. Continue usual dietary modifications and medications 5. Anemia and hypoalbuminemia. Provide supplementation and nutritional education 6. Osteoarthritis. Low back pain. Neck pain seems to be responding to some therapeutic modalities. Continue with education on how to continue to modify home program 7. Overactive bladder. Rehabilitative nursing G training protocol consideration of appropriate medications as indicated 8. GI Obesity Colon polyps- nutritional education, supplementation and monitoring for any GI changes associated with elimination 9. Glaucoma continue with usual prescribed neurological medications and encouraged follow-up ANTICIPATED DISPOSITION home with family TIME SPENT: Chart Review, examination and documentation 25 minutes. Allergies Coded Allergies: Sulfa (Sulfonamide Antibiotics) (Verified Adverse Reaction, Unknown, hallucinations, 11/13/19) Vital Signs Vital Signs Date Time Temp Pulse Resp B/P (MAP) Pulse Ox O2 Delivery O2 Flow Rate FiO2 12/01/19 14:00 97.5 77 20 149/69 (95) 95 Room Air Laboratory Data Labs 24H Laboratory Tests 2 11/30/19 19:36: Bedside Glucose (Misc Panel) 161H 12/01/19 05:26: Bedside Glucose (Misc Panel) 151H 12/01/19 11:44: Bedside Glucose (Misc Panel) 169H 12/01/19 16:31: Bedside Glucose (Misc Panel) 114H Current Medications Current Medications Current Medications Medications (Trade) Dose Ordered Sig/Yovanny Route PRN Reason Start Time Stop Time Status Last Admin Dose Admin Acetaminophen (Tylenol Tab) 1,000 mg Q6HP PRN PO MILD PAIN (PS 1-4) 11/24/19 15:15 11/30/19 21:26 Ascorbic Acid (Vitamin C) 250 mg DAILY PO 11/27/19 09:00 12/01/19 08:25 Aspirin (Ecotrin) 81 mg BID PO 11/24/19 21:00 12/01/19 08:25 Atorvastatin Calcium (Lipitor) 20 mg DAILY PO 11/25/19 09:00 12/01/19 08:26 Brimonidine Tartrate (Alphagan P 0.15%) 1 drop BID OU 11/24/19 21:00 11/25/19 16:10 DC 11/25/19 08:21 Dextrose (Dextrose 50%) 25 ml ASDIRECTED PRN IV SEE LABEL COMMENTS 11/24/19 17:00 Ferrous Gluconate (Fergon) 324 mg ACS PO 11/27/19 17:30 11/30/19 17:23 Fish Oil ([place]-3 (1000mg)) 1 cap QHS PO 11/24/19 21:00 11/30/19 21:23 Gabapentin (Neurontin) 300 mg TID PO 11/24/19 21:00 12/01/19 08:26 Glipizide (Glucotrol Xl) 10 mg BID PO 11/24/19 21:00 12/01/19 08:27 Glucagon (Glucagon) 1 mg ASDIRECTED PRN SC SEE LABEL COMMENTS 11/24/19 17:00 Glucose (Glucose) 16 GM ASDIRECTED PRN PO SEE LABEL COMMENTS 11/24/19 17:00 Home Med (Med Rec Complete!) ASDIRECTED XX 11/24/19 16:30 11/24/19 16:30 DC Insulin Human Lispro (HumaLOG INSULIN) SEE PROTOCOL TABLE AC SC 11/24/19 17:30 12/01/19 13:04 Latanoprost (Xalatan 0.005% Op Soln) 1 drop QHS OU 11/24/19 21:00 11/25/19 16:08 DC 11/24/19 20:18 Levothyroxine Sodium (Synthroid) 75 mcg DAILY@0600 PO 11/25/19 06:00 12/01/19 06:20 Lisinopril (Prinivil) 40 mg DAILY PO 11/25/19 09:00 12/01/19 08:26 Metformin HCl (Glucophage) 500 mg BIDWM PO 11/24/19 18:00 12/01/19 08:26 Miscellaneous (Unresolved Patient Own Med Order) SEE LABEL COMMENTS DAILY XX 11/25/19 09:00 11/26/19 08:15 DC Multivitamins (Theragram-M) 1 tab DAILY PO 11/25/19 09:00 12/01/19 08:26 Omeprazole (PriLOSEC) 20 mg DAILY PO 11/24/19 09:00 12/01/19 08:26 Patient Own Medication (Patient'S Own Med) Combigan 0.2%-0.5% eye dr... BID OU 11/25/19 21:00 11/27/19 17:31 DC 11/28/19 17:25 Patient Own Medication (Patient'S Own Med) Combigan 0.2%-0.5% eye dr... BID@0900,1800 OU 11/27/19 18:00 12/01/19 10:57 Patient Own Medication (Patient'S Own Med) Rocklatan 0.02%-0.05% 1 ELIZABETH... QHS OU 11/25/19 21:00 11/30/19 21:23 Polyethylene Glycol (Miralax) 1 pkt DAILY PRN PO CONSTIPATION 11/24/19 15:15 Potassium Chloride (Micro-K Extencaps) 20 meq BID PO 11/24/19 21:00 12/01/19 08:26 Prednisone (Deltasone) 5 mg DAILY PO 11/25/19 09:00 12/01/19 08:25 Timolol Maleate (Timoptic 0.5% Ophth Stefanie) 1 drop BID OU 11/24/19 21:00 11/25/19 16:10 DC 11/25/19 08:21 Vitamin B Complex/ Vitamin C (Therapeutic B Complex w/C) 1 cap DAILY PO 11/26/19 09:00 12/01/19 08:25 CASSANDRA PÉREZ MD Dec 01, 2019 17:06
[2019-12-01 20:00] VITALS: BP 130/50
[2019-12-01] MEDS: OMEGA-3 1000MG CAPSULE PO SCH (20:50)
[2019-12-01] MEDS: ROCKLATAN OU SCH (20:51)
[2019-12-02] MEDS: ACETAMINOPHEN 500 MG TAB PO PRN (01:41)
[2019-12-02] MEDS: LEVOTHYROXINE 75MCG TABLET (0.075MG) PO SCH (06:09)
[2019-12-02 06:13] VITALS: BP 142/70
[2019-12-02] MEDS: lisinopriL 40 MG TAB PO SCH (07:11)
[2019-12-02] MEDS: glipiZIDE XL 5 MG TABCR PO SCH ×2 (07:11→20:43)
[2019-12-02] MEDS: metFORMIN (GLUCOPHAGE) 500 MG TAB PO SCH ×2 (07:11→17:02)
[2019-12-02] MEDS: ASCORBIC ACID 250 MG TAB PO SCH (07:11)
[2019-12-02] MEDS: OMEPRAZOLE 20 MG CAP PO SCH (07:11)
[2019-12-02] MEDS: VITAMIN B COMPLEX/VIT C CAP PO SCH (07:11)
[2019-12-02] MEDS: HumaLOG INSULIN (NovoLOG) PER UNIT SC SCH ×3 (07:11→17:02)
[2019-12-02] MEDS: COMBIGAN OU SCH ×2 (07:12→17:02)
[2019-12-02] MEDS: ATORVASTATIN 20 MG TAB PO SCH (07:12)
[2019-12-02] MEDS: GABAPENTIN 300 MG CAP PO SCH ×3 (07:12→20:45)
[2019-12-02] MEDS: EYE OU SCH ×3 (07:12→20:45)
[2019-12-02] MEDS: ASPIRIN 81 MG ENTERIC TAB PO SCH ×2 (07:12→20:44)
[2019-12-02] MEDS: POTASSIUM CHLORIDE 10 MEQ SR TABLET PO SCH ×2 (07:12→20:44)
[2019-12-02] MEDS: predniSONE 5 MG TAB PO SCH (07:12)
[2019-12-02] MEDS: MULTIVITAMINS/MINERALS THERAP 1 TAB PO SCH (07:12)
--- NOTE | 2019-12-02 10:19 | IPNPDOC ---
PM&R Progress Note DATE OF SERVICE: Dec 02, 2019 Environmental Specialist Progress Note DATE OF ADMISSION: Nov 24, 2019 at 15:42 DATE OF SERVICE: Dec 02, 2019 INPATIENT REHABILITATION ADMISSION DAY: #8 CHIEF COMPLAINT: Left hip girdle burning pain, discomfort, left foot drop, visual impairment left eye, poor nourishment with hypoalbuminemia. SUBJECTIVE: Patient is an 84 year-old with ongoing healing from a dislocated left total hip replacement, was also found to be anemic. She is doing well, in preparation for safest discharge home. Pain is significantly decreased. She is learning to compensate for the visual difficulties that continue to make her not completely safe on her own. She is making progress is working on short distances ambulation without AFO for safety at home and things like accessing the bathroom along with longer distance mobility using the AFO. FUNCTIONAL STATUS: Patient participating well in therapy, occupational therapy with focus on attempt to achieve some recovery in the left lower extremity neuropraxia. Neuro reeducation including trial of NMES does not elicit much motor response. Pt performed sit<>stand mod I, ambulated 120 ft with RW mod I with and without AFO donned. Worked on dynamic balance in wide, narrow and semi tandem stance with no UE support. Pt cleared for room privileges with understanding for asking for assist with donning AFO when needed. ALLERGIES: See Below MEDICATIONS: Reviewed, see below. REVIEW OF SYSTEMS: The following is a completed review of systems and has been reviewed. Review of systems otherwise unremarkable. PAIN: Left Achilles and hip girdle pain, improving EYES: No recent vision changes EARS, NOSE, & THROAT: No throat pain, or dysphagia, or rhinorrhea CARDIOVASCULAR: Denies chest pain or palpitations PULMONARY: Denies shortness of breath, +cough GASTROINTESTINAL: Denies constipation/diarrhea GENITOURINARY: incontinence (chronic) MUSCULOSKELETAL: left hip pain NEUROLOGICAL: no focal deficits HEMATOLOGICAL: denies easy bruising SKIN: left hip incision PSYCHIATRIC: Unremarkable All other review of systems found to be negative. OBJECTIVE: VITAL SIGNS: Please see below. PHYSICAL EXAMINATION: GENERAL: Pleasant, eager to regain strength and achieving goals for discharge. HEENT: Normocephalic, atraumatic. No facial droop. EOMI. No adenopathy or thyromegaly . CARDIOVASCULAR: S1, S2, regular rate with II/VII SM. . LUNGS: Decreased breath sounds, no wheezes, rales or rhonchi. ABDOMEN: Soft, nontender, nondistended. Normoactive bowel sounds throughout. MUSCULOSKELETAL: MMT: 5/5 bilateral elbow flexion/ extension and knee extension, 5 over 5 right lower extremity throughout. Left lower extremity. Trace extensor digitorum brevis, approximately 2 over 5, plantar flexion, 4+ over 5, quadriceps and hamstrings. There is tenderness over the posterior lateral popliteal region and fibular head on the left with a thickening sensation. NEUROLOGICAL: Alert and oriented times three. Answers all question appropriately. Sensation intact bilateral upper and lower extremities. SKIN: Intact anterior left hip dry with 1 cm mid incision area of slight open ing, no surrounding erythema or warmth or drainage. LABORATORY DATA: Reviewed. Hemoglobin A1c last week noted to be 7.0. Please see below. Hemoglobin 10.1, hematocrit 32.5 ASSESSMENT AND PLAN: DIAGNOSES Status post left anterior THR with subsequent traumatic dislocation, secondary fall. Hematoma Left lower extremity neuropraxia. Hypertension. Diabetes. Anemia. CAD. HLD. Low back pain. Neck pain. Obesity. Osteoarthritis. Overactive bladder. Colon polyps Glaucoma. History of, bilateral TKR, right CTR, left foot neuroma surgery, cardiac cath 2. This is an 83-year-old hypertensive diabetic lady with history of progressive arthritis leading to elective left total hip replacement 9.29, subsequent dislocation led to an ER visit 10.1 requiring closed reduction. 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 1. Status post left anterior THR with subsequent traumatic dislocation, continue comprehensive PT, OT rebuilds of nursing for optimal advancement of gait, mobility, strengthening, stretching, maintaining range of motion in all 4 limbs, ambulating with assistive device. 2. Left lower extremity neuropraxia. Continue trial of electrical stimulation, will need outpatient electrodiagnostic studies for further confirmation of extent of nerve damage and anticipated potential recovery. She is well- controlled diabetic, hemoglobin A1c of 7 with no distal sensory changes or intrinsic Atrophy noted. Thus if there is a component of diabetic neuropathy it would be considered mild. 3. CVD Hypertension. CAD HLD . Continue appropriate medications, monitoring vital signs, response to exertion and therapeutic interventions 4. Diabetes appears well controlled. Continue usual dietary modifications and medications 5. Anemia and hypoalbuminemia. Provide supplementation and nutritional education 6. Osteoarthritis. Low back pain and Neck pain seems to be responding to some therapeutic modalities. Continue with education on how to continue to modify home program 7. Overactive bladder. Rehabilitative nursing G training protocol consideration of appropriate medications as indicated 8. GI Obesity Colon polyps- nutritional education, supplementation and monitoring for any GI changes associated with elimination 9. Glaucoma continue with usual prescribed neurological medications and encouraged follow-up ANTICIPATED DISPOSITION home with family TIME SPENT: Chart Review, examination and documentation 30 minutes. Allergies Coded Allergies: Sulfa (Sulfonamide Antibiotics) (Verified Adverse Reaction, Unknown, hallucinations, 11/13/19) Vital Signs Vital Signs Date Time Temp Pulse Resp B/P (MAP) Pulse Ox O2 Delivery O2 Flow Rate FiO2 12/02/19 06:13 97.8 64 17 142/70 (94) 92 Room Air Laboratory Data Labs 24H Laboratory Tests 2 12/01/19 11:44: Bedside Glucose (Misc Panel) 169H 12/01/19 16:31: Bedside Glucose (Misc Panel) 114H 12/01/19 19:32: Bedside Glucose (Misc Panel) 160H 12/02/19 05:16: Bedside Glucose (Misc Panel) 167H Current Medications Current Medications Current Medications Medications (Trade) Dose Ordered Sig/Yovanny Route PRN Reason Start Time Stop Time Status Last Admin Dose Admin Acetaminophen (Tylenol Tab) 1,000 mg Q6HP PRN PO MILD PAIN (PS 1-4) 11/24/19 15:15 12/02/19 01:41 Ascorbic Acid (Vitamin C) 250 mg DAILY PO 11/27/19 09:00 12/02/19 07:11 Aspirin (Ecotrin) 81 mg BID PO 11/24/19 21:00 12/02/19 07:12 Atorvastatin Calcium (Lipitor) 20 mg DAILY PO 11/25/19 09:00 12/02/19 07:12 Brimonidine Tartrate (Alphagan P 0.15%) 1 drop BID OU 11/24/19 21:00 11/25/19 16:10 DC 11/25/19 08:21 Dextrose (Dextrose 50%) 25 ml ASDIRECTED PRN IV SEE LABEL COMMENTS 11/24/19 17:00 Ferrous Gluconate (Fergon) 324 mg ACS PO 11/27/19 17:30 12/01/19 17:05 Fish Oil ([place]-3 (1000mg)) 1 cap QHS PO 11/24/19 21:00 12/01/19 20:50 Gabapentin (Neurontin) 300 mg TID PO 11/24/19 21:00 12/02/19 07:12 Glipizide (Glucotrol Xl) 10 mg BID PO 11/24/19 21:00 12/02/19 07:11 Glucagon (Glucagon) 1 mg ASDIRECTED PRN SC SEE LABEL COMMENTS 11/24/19 17:00 Glucose (Glucose) 16 GM ASDIRECTED PRN PO SEE LABEL COMMENTS 11/24/19 17:00 Home Med (Med Rec Complete!) ASDIRECTED XX 11/24/19 16:30 11/24/19 16:30 DC Insulin Human Lispro (HumaLOG INSULIN) SEE PROTOCOL TABLE AC SC 11/24/19 17:30 12/02/19 07:11 Latanoprost (Xalatan 0.005% Op Soln) 1 drop QHS OU 11/24/19 21:00 11/25/19 16:08 DC 11/24/19 20:18 Levothyroxine Sodium (Synthroid) 75 mcg DAILY@0600 PO 11/25/19 06:00 12/02/19 06:09 Lisinopril (Prinivil) 40 mg DAILY PO 11/25/19 09:00 12/02/19 07:11 Metformin HCl (Glucophage) 500 mg BIDWM PO 11/24/19 18:00 12/02/19 07:11 Miscellaneous (Unresolved Patient Own Med Order) SEE LABEL COMMENTS DAILY XX 11/25/19 09:00 11/26/19 08:15 DC Multivitamins (Theragram-M) 1 tab DAILY PO 11/25/19 09:00 12/02/19 07:12 Omeprazole (PriLOSEC) 20 mg DAILY PO 11/24/19 09:00 12/02/19 07:11 Patient Own Medication (Patient'S Own Med) Combigan 0.2%-0.5% eye BID OU 11/25/19 21:00 11/27/19 17:31 DC 11/28/19 17:25 Patient Own Medication (Patient'S Own Med) Combigan 0.2%-0.5% eye BID@0900,1800 OU 11/27/19 18:00 12/02/19 07:12 Patient Own Medication (Patient'S Own Med) Rocklatan 0.02%-0.05% 1 ELIZABETH... QHS OU 11/25/19 21:00 12/01/19 20:51 Polyethylene Glycol (Miralax) 1 pkt DAILY PRN PO CONSTIPATION 11/24/19 15:15 12/02/19 09:51 Potassium Chloride (Micro-K Extencaps) 20 meq BID PO 11/24/19 21:00 12/02/19 07:12 Prednisone (Deltasone) 5 mg DAILY PO 11/25/19 09:00 12/02/19 07:12 Timolol Maleate (Timoptic 0.5% Ophth Stefaine) 1 drop BID OU 11/24/19 21:00 11/25/19 16:10 DC 11/25/19 08:21 Vitamin B Complex/ Vitamin C (Therapeutic B Complex w/C) 1 cap DAILY PO 11/26/19 09:00 12/02/19 07:11 CASSANDRA PÉREZ MD Dec 02, 2019 10:18
[2019-12-02 14:00] VITALS: BP 144/72
[2019-12-02] MEDS: FERROUS GLUCONATE 324 MG TAB PO SCH (17:02)
[2019-12-02 20:00] VITALS: BP 142/65
[2019-12-02] MEDS: OMEGA-3 1000MG CAPSULE PO SCH (20:44)
[2019-12-02] MEDS: ROCKLATAN OU SCH (20:45)
[2019-12-03] MEDS: LEVOTHYROXINE 75MCG TABLET (0.075MG) PO SCH (05:46)
[2019-12-03 06:00] VITALS: BP 190/95
[2019-12-03] MEDS: lisinopriL 40 MG TAB PO SCH (06:42)
[2019-12-03 07:30] VITALS: BP 166/72
[2019-12-03] MEDS ORDERED: B-CO1TAB12 PO (09:48)
[2019-12-03] MEDS ORDERED: PEG1POW PO (09:48)
[2019-12-03] MEDS ORDERED: ASCO250T20 PO (09:48)
[2019-12-03] MEDS ORDERED: FERR32TA PO (09:48)
[2019-12-03] MEDS: MULTIVITAMINS/MINERALS THERAP 1 TAB PO SCH (09:53)
[2019-12-03] MEDS: predniSONE 5 MG TAB PO SCH (09:53)
[2019-12-03] MEDS: ASPIRIN 81 MG ENTERIC TAB PO SCH (09:53)
[2019-12-03] MEDS: OMEPRAZOLE 20 MG CAP PO SCH (09:53)
[2019-12-03] MEDS: ASCORBIC ACID 250 MG TAB PO SCH (09:53)
[2019-12-03] MEDS: VITAMIN B COMPLEX/VIT C CAP PO SCH (09:53)
[2019-12-03] MEDS: metFORMIN (GLUCOPHAGE) 500 MG TAB PO SCH (09:54)
[2019-12-03] MEDS: ATORVASTATIN 20 MG TAB PO SCH (09:55)
[2019-12-03] MEDS: POTASSIUM CHLORIDE 10 MEQ SR TABLET PO SCH (09:55)
[2019-12-03] MEDS: GABAPENTIN 300 MG CAP PO SCH ×2 (09:55→15:28)
[2019-12-03] MEDS ORDERED: FLUBLOK(EGG FREE)(QUAD)INFLUENZA VACC 0.5ML SYRINGE 18YRS & OLDER IM ONE (10:00)
[2019-12-03] MEDS: glipiZIDE XL 5 MG TABCR PO SCH (10:00)
[2019-12-03] MEDS: EYE OU SCH (10:03)
[2019-12-03] MEDS: COMBIGAN OU SCH (10:03)
[2019-12-03] MEDS: HumaLOG INSULIN (NovoLOG) PER UNIT SC SCH ×2 (10:04→12:23)
[2019-12-03 12:25] VITALS: BP 164/72
[2019-12-03 14:00] VITALS: BP 152/72
--- NOTE | 2019-12-03 15:23 | DS.PDOC ---
PM&R Discharge Summary Transfer Station Operator Discharge Note DATE OF ADMISSION: Nov 24, 2019 at 15:42 DATE OF ADMISSION: Nov 17, 2019 at 18:30 DATE OF DISCHARGE: 12/03/2019 DISCHARGE DIAGNOSES: Hypertension Diabetes GERD. CAD Hypercholesterolemia. Hypokalemia. Low back pain. Neck pain. Obesity. Osteoarthritis. Overactive bladder. Glaucoma. Anemia. 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 Colon polyps. 2., -related DVT. PAST SURGICAL HISTORY: 1. Status post bilateral TKR. 2. Status post vaginal hysterectomy with anterior, posterior vaginal repair. 3., Bladder suspension. 4. Benign breast biopsy. 5. Cataract extraction with intraocular lens implant. 6. Right carpal tunnel release. 7. Neuroma surgery, left foot. 8. Cardiac cath, 1994 2004 HOSPITAL COURSE: This is an 83 year old hypertensive diabetic lady with history of progressive arthritis leading to elective left total hip replacement on 11.11.2019. She was discharged home same day post operatively and subsequently fell twice on 11.11 and again on 11.12, disclocating her left hip in the process, she had new onset left lower extremity weakness post operatively that was evaluated along with the dislocation, a closed reduction achieved in the ER and she was admitted 11/24/2019 for rehabilitation of post dislocation left thr, left foot drop, hyperactive bladder and ongoing visual impairments. She did well on the unit, undergoing comprehensive physical therapy, occupational therapy, rehabilitative nursing interventions. Unfortunately, there was little motor response noted with transcutaneous nerve stimulation, mobility skills with focus on use of an AFO and for short distance ambulation without one. Wound was noted to have a small area that opened, however, remain stable with application of Steri-Strips with no bleeding or evidence of infection. She has had some episodes of elevation of BP usuallyrelated to exertion or escalating pain, in general has been well controlled. Flu shot given prior to discharge. PHYSICAL EXAMINATION: GENERAL: Pleasant, eager to regain strength and achieving goals for discharge. HEENT: Normocephalic, atraumatic. No facial droop. EOMI. No adenopathy or thyromegaly . CARDIOVASCULAR: S1, S2, regular rate with II/VII SM. LUNGS: Decreased breath sounds, no wheezes, rales or rhonchi. ABDOMEN: Soft, nontender, nondistended. Normoactive bowel sounds throughout. MUSCULOSKELETAL: MMT: 5/5 bilateral elbow flexion/ extension and knee extension, 5 over 5 right lower extremity throughout. Left lower extremity. Trace extensor digitorum brevis, approximately 1/5, plantar flexion, 4+ over 5, quadriceps and hamstrings. There is tenderness over the posterior lateral popliteal region and fibular head on the left with a thickening sensation. NEUROLOGICAL: Alert and oriented times three. Answers all question appropri ately. Sensation intact bilateral upper and lower extremities. SKIN: Intact anterior left hip dry with 1 cm mid incision area of slight opening, no surrounding erythema or warmth or drainage. FUNCTIONAL STATUS AT DISCHARGE: She was modified with ablation with the rolling walker, self-care activities, she was able to complete stairs with bilateral handrails was continent of bowel and bladder and fully cognizant. Left foot drop, requires use of an AFO. OTHER TESTS: LABORATORY DATA: Please see below. Anemia ALLERGIES: See below. MEDICATIONS: See Below. DISCHARGE DISPOSITION: Home with family Vital Signs/I&O Vital Sign - Last 24 Hours 12/02/19 12/02/19 12/03/19 12/03/19 14:00 20:00 06:00 07:30 Temp 97.9 98.1 98.4 Pulse 67 61 72 68 Resp 17 18 16 B/P (MAP) 144/72 (96) 142/65 (90) 190/95 (126) 166/72 (103) Pulse Ox 95 96 94 94 O2 Delivery Room Air Room Air Room Air Room Air 12/03/19 12:25 B/P (MAP) 164/72 (102) I&O- Last 24 Hours up to 6 AM 12/03/19 06:00 Intake Total 1230 ml Balance 1230 ml Laboratory Data Labs 48H Laboratory Tests 12/01/19 16:31: Bedside Glucose (Misc Panel) 114H 12/01/19 19:32: Bedside Glucose (Misc Panel) 160H 12/02/19 05:16: Bedside Glucose (Misc Panel) 167H 12/02/19 12:32: Bedside Glucose (Misc Panel) 176H 12/02/19 16:43: Bedside Glucose (Misc Panel) 128H 12/02/19 20:01: Bedside Glucose (Misc Panel) 200H 12/03/19 06:22: Bedside Glucose (Misc Panel) 173H 12/03/19 11:48: Bedside Glucose (Misc Panel) 142H FSBS Laboratory Tests Test 12/02/19 16:43 12/02/19 20:01 12/03/19 06:22 12/03/19 11:48 Range/Units Bedside Glucose (Misc Panel) 128 200 173 142 83-110 MG/DL Medications Medications Current Medications Medications (Trade) Dose Ordered Sig/Yovanny Route PRN Reason Start Time Stop Time Status Last Admin Dose Admin Acetaminophen (Tylenol Tab) 1,000 mg Q6HP PRN PO MILD PAIN (PS 1-4) 11/24/19 15:15 12/02/19 01:41 Ascorbic Acid (Vitamin C) 250 mg DAILY PO 11/27/19 09:00 12/03/19 09:53 Aspirin (Ecotrin) 81 mg BID PO 11/24/19 21:00 12/03/19 09:53 Atorvastatin Calcium (Lipitor) 20 mg DAILY PO 11/25/19 09:00 12/03/19 09:55 Brimonidine Tartrate (Alphagan P 0.15%) 1 drop BID OU 11/24/19 21:00 11/25/19 16:10 DC 11/25/19 08:21 Dextrose (Dextrose 50%) 25 ml ASDIRECTED PRN IV SEE LABEL COMMENTS 11/24/19 17:00 Ferrous Gluconate (Fergon) 324 mg ACS PO 11/27/19 17:30 12/02/19 17:02 Fish Oil (Columbia-3 (1000mg)) 1 cap QHS PO 11/24/19 21:00 12/02/19 20:44 Gabapentin (Neurontin) 300 mg TID PO 11/24/19 21:00 12/03/19 09:55 Glipizide (Glucotrol Xl) 10 mg BID PO 11/24/19 21:00 12/03/19 10:00 Glucagon (Glucagon) 1 mg ASDIRECTED PRN SC SEE LABEL COMMENTS 11/24/19 17:00 Glucose (Glucose) 16 GM ASDIRECTED PRN PO SEE LABEL COMMENTS 11/24/19 17:00 Home Med (Med Rec Complete!) ASDIRECTED XX 11/24/19 16:30 11/24/19 16:30 DC Insulin Human Lispro (HumaLOG INSULIN) SEE PROTOCOL TABLE AC SC 11/24/19 17:30 12/03/19 12:23 Latanoprost (Xalatan 0.005% Op Soln) 1 drop QHS OU 11/24/19 21:00 11/25/19 16:08 DC 11/24/19 20:18 Levothyroxine Sodium (Synthroid) 75 mcg DAILY@0600 PO 11/25/19 06:00 12/03/19 05:46 Lisinopril (Prinivil) 40 mg DAILY PO 11/25/19 09:00 12/03/19 06:42 Metformin HCl (Glucophage) 500 mg BIDWM PO 11/24/19 18:00 12/03/19 09:54 Miscellaneous (Unresolved Patient Own Med Order) SEE LABEL COMMENTS DAILY XX 11/25/19 09:00 11/26/19 08:15 DC Multivitamins (Theragram-M) 1 tab DAILY PO 11/25/19 09:00 12/03/19 09:53 Omeprazole (PriLOSEC) 20 mg DAILY PO 11/24/19 09:00 12/03/19 09:53 Patient Own Medication (Patient'S Own Med) Combigan 0.2%-0.5% eye dr... BID OU 11/25/19 21:00 11/27/19 17:31 DC 11/28/19 17:25 Patient Own Medication (Patient'S Own Med) Combigan 0.2%-0.5% eye dr... BID@0900,1800 OU 11/27/19 18:00 12/03/19 10:03 Patient Own Medication (Patient'S Own Med) Rocklatan 0.02%-0.05% 1 ELIZABETH... QHS OU 11/25/19 21:00 12/02/19 20:45 Polyethylene Glycol (Miralax) 1 pkt DAILY PRN PO CONSTIPATION 11/24/19 15:15 12/02/19 09:51 Potassium Chloride (Micro-K Extencaps) 20 meq BID PO 11/24/19 21:00 12/03/19 09:55 Prednisone (Deltasone) 5 mg DAILY PO 11/25/19 09:00 12/03/19 09:53 Timolol Maleate (Timoptic 0.5% Ophth Stefanie) 1 drop BID OU 11/24/19 21:00 11/25/19 16:10 DC 11/25/19 08:21 Vitamin B Complex/ Vitamin C (Therapeutic B Complex w/C) 1 cap DAILY PO 11/26/19 09:00 12/03/19 09:53 Scheduled Ascorbic Acid (Vitamin C) 250 Mg Tablet, 250 MG PO DAILY Aspirin (Aspirin EC) 81 Mg Tablet.dr, 81 MG PO BID, (Reported) Atorvastatin Calcium (Atorvastatin Calcium) 20 Mg Tablet, 20 MG PO DAILY, (Reported) B-Complex with Vitamin C (Vitamin B Complex-Vitamin C) 1 Each Tablet, 1 CAP PO DAILY Brimonidine Tartrate/Timolol (Combigan 0.2%-0.5% Eye Drops) 5 Ml Drops, 1 DROP OU BID, (Reported) Dapagliflozin Propanediol (Farxiga) 10 Mg Tablet, 5 MG PO DAILY, (Reported) Ferrous Gluconate (Ferrous Gluconate) 324 Mg Tablet, 324 MG PO ACS Gabapentin (Gabapentin) 300 Mg Capsule, 300 MG PO TID, (Reported) Glipizide (Glipizide ER) 10 Mg Tab.er.24, 10 MG PO BID, (Reported) Levothyroxine Sodium (Synthroid) 75 Mcg Tablet, 75 MCG PO DAILY, (Reported) Liraglutide (Victoza 2-Topher) 0.6 Mg/0.1 Ml Pen.injctr, 1.8 MG SC DAILY, (Reported) Lisinopril (Lisinopril) 40 Mg Tablet, 40 MG PO DAILY, (Reported) Metformin HCl (Metformin HCl) 500 Mg Tablet, 500 MG PO BID, (Reported) Multivitamins (Thera M Plus Tablet) 1 Each Tablet, 1 TAB PO DAILY, (Reported) Netarsudil Mesylat/Latanoprost (Rocklatan 0.02%-0.005% Eye Drp) 2.5 Ml Drops, 1 DROP OU QHS, (Reported) Columbia-3/Dha/Epa/Fish Oil (Fish Oil 1,000 mg Softgel) 1 Each Capsule, 1,000 MG PO QHS, (Reported) Omeprazole (Omeprazole) 20 Mg Capsule.dr, 20 MG PO DAILY, (Reported) Potassium Chloride (Potassium Chloride) 20 Meq Tab.er.prt, 20 MEQ PO BID, (Reported) Prednisone (Prednisone) 5 Mg Tablet, 5 MG PO DAILY, (Reported) Scheduled PRN Acetaminophen (Acetaminophen) 325 Mg Tablet, 975 MG PO Q8H PRN for PAIN, (Reported) Polyethylene Glycol 3350 (Polyethylene Glycol 3350) 17 Gm Powd.pack, 1 PKT PO DAILY PRN for CONSTIPATION Allergies Coded Allergies: Sulfa (Sulfonamide Antibiotics) (Verified Adverse Reaction, Unknown, hallucinations, 11/13/19) CASSANDRA PÉREZ MD Dec 03, 2019 13:56
== END 2019-12-03 15:35 | disposition home health service (06) | DRG 565 ==
LOC: M PM&R 15:42
PROVIDERS: ADMIT Physical Medicine & Rehabilitation; ATTEND Physical Medicine & Rehabilitation
DX: M21.372 Foot drop, left foot (principal); M96.840 Postprocedural hematoma of a musculoskeletal structure following a musculoskeletal system procedure; Z96.642 Presence of left artificial hip joint; Z96.653 Presence of artificial knee joint, bilateral; I10 Essential (primary) hypertension; H53.9 Unspecified visual disturbance; E88.09 Other disorders of plasma-protein metabolism, not elsewhere classified; E11.9 Type 2 diabetes mellitus without complications; K21.9 Gastro-esophageal reflux disease without esophagitis; I25.10 Atherosclerotic heart disease of native coronary artery without angina pectoris; E78.00 Pure hypercholesterolemia, unspecified; E87.6 Hypokalemia; M54.5 Low back pain; M54.2 Cervicalgia; E66.9 Obesity, unspecified; M19.90 Unspecified osteoarthritis, unspecified site; K59.00 Constipation, unspecified; T84.021D Dislocation of internal left hip prosthesis, subsequent encounter; N32.81 Overactive bladder; H40.9 Unspecified glaucoma; S94.22XA Injury of deep peroneal nerve at ankle and foot level, left leg, initial encounter; D64.9 Anemia, unspecified; Z79.52 Long term (current) use of systemic steroids; Z66 Do not resuscitate; Z86.010 Personal history of colon polyps; Z98.49 Cataract extraction status, unspecified eye; Z74.09 Other reduced mobility; Z74.1 Need for assistance with personal care; Z79.82 Long term (current) use of aspirin; Z79.84 Long term (current) use of oral hypoglycemic drugs; Z79.899 Other long term (current) drug therapy; Z88.2 Allergy status to sulfonamides; Z68.39 Body mass index [BMI] 39.0-39.9, adult; Y83.1 Surgical operation with implant of artificial internal device as the cause of abnormal reaction of the patient, or of later complication, without mention of misadventure at the time of the procedure; W19.XXXD Unspecified fall, subsequent encounter; Y92.9 Unspecified place or not applicable

== ENCOUNTER → 2021-06-02 | Outpatient (CLI) | payer MEDICARE ==
[~2021-06-02] MED LIST changes: +ACET1TAB55 PO; +ASCO250T20 PO; +B-CO1TAB12 PO; -D31000TA2 PO; +FERR32TA PO; +GABA-282 PO; -GABA-843 PO; -LISI40TA PO; +LISI40TA4 PO; +OMEP-173 PO; -OMEP-218 PO; +PANT40TA29 PO; +POLY17PO18 PO; +POTA-151 PO; -POTA10TA14 PO; +POTA1TAB24 PO; -POTA20TA6 PO; +VITA100093 PO
== END ==
LOC: M PLAIMG 09:45
PROVIDERS: ATTEND Orthopaedic Surgery
DX: M48.07 Spinal stenosis, lumbosacral region (principal)

== ENCOUNTER → 2021-06-02 | Outpatient (CLI) | payer MEDICARE | LOC: M PLAIMG 09:42 | PROVIDERS: ATTEND Physical Medicine & Rehabilitation | DX: M54.16 Radiculopathy, lumbar region (principal) ==

== ENCOUNTER → 2021-10-02 | Outpatient (CLI) | payer MEDICARE ==
[~2021-10-02] MED LIST changes: +ACET125T2 PO; +CHLO125TA PO; +OZEM2INJ SQ
== END ==
LOC: M LABSMTC 10:41
PROVIDERS: ATTEND Anesthesiology
DX: Z11.52 Encounter for screening for COVID-19 (principal)

== ENCOUNTER 2021-10-05 13:09 | Day surgery (SDC) | payer MEDICARE ==
[~2021-10-05] VITALS: Ht 162.6 cm; Wt 77.7 kg
[~2021-10-05 13:09] MED LIST changes: +LIDOCAINE 2% W/EPINEPHRINE 20ML VIAL **PRES FREE As Ordered ONE; +LIDOCAINE 3.5 % 1ML OPHTH TOPICAL GEL OU ONE; +POVIDONE-IODINE 5% OPHTH PREP SOL 30ML As Ordered ONE; +TOBRADEX OPHTH OINT 3.5 GM As Ordered ONE; +mitoMYcin 0.2 MG/VIAL KIT FOR OPHTHALMIC USE (J7315 PER 0.2MG) As Ordered ONE
[2021-10-05] MEDS ORDERED: MIDAZOLAM INJ 2MG/2ML VIAL (J2250 PER 1MG) As Ordered ONE (14:41)
[2021-10-05] MEDS ORDERED: fentaNYL 100 MCG/2 ML INJECTION As Ordered ONE ×2 (14:42→15:42)
[2021-10-05] MEDS ORDERED: TOBRAMYCIN 80MG/2ML VIAL As Ordered ONE (14:56)
[2021-10-05] MEDS ORDERED: BETAMETHASONE SOLUSPAN 6MG/ML 5ML VIAL (J0702 PER 3MG) As Ordered ONE (14:58)
[2021-10-05 16:25] VITALS: BP 158/72
== END 2021-10-05 16:30 | disposition home or self-care (01) ==
LOC: M SDC 13:09
PROVIDERS: ATTEND Ophthalmology
DX: H40.1121 Primary open-angle glaucoma, left eye, mild stage (principal); H16.223 Keratoconjunctivitis sicca, not specified as Sjogren's, bilateral; I10 Essential (primary) hypertension; E11.9 Type 2 diabetes mellitus without complications; E78.2 Mixed hyperlipidemia; E03.9 Hypothyroidism, unspecified; K21.9 Gastro-esophageal reflux disease without esophagitis; M54.9 Dorsalgia, unspecified; Z79.899 Other long term (current) drug therapy; Z79.890 Hormone replacement therapy; Z79.82 Long term (current) use of aspirin; Z79.84 Long term (current) use of oral hypoglycemic drugs; Z88.6 Allergy status to analgesic agent; Z88.2 Allergy status to sulfonamides; Z88.8 Allergy status to other drugs, medicaments and biological substances
CPT/HCPCS: 66183; C1783; J2250; J3010; J7315

== ENCOUNTER 2023-03-21 11:49 | Day surgery (SDC) | payer MEDICARE ==
[~2023-03-21] VITALS: Ht 162.6 cm; Wt 77.9 kg
[2023-03-21] MEDS: LIDOCAINE 3.5 % 1ML OPHTH TOPICAL GEL OU ONE (06:00)
[~2023-03-21 11:49] MED LIST changes: -ASPI-161 PO; +ASPI-615 PO; -LIDOCAINE 2% W/EPINEPHRINE 20ML VIAL **PRES FREE As Ordered ONE; -LIDOCAINE 3.5 % 1ML OPHTH TOPICAL GEL OU ONE; +MIDAZOLAM INJ 2MG/2ML VIAL As Ordered ONE; -POVIDONE-IODINE 5% OPHTH PREP SOL 30ML As Ordered ONE; +SEMA1PEN2 SC; -TOBRADEX OPHTH OINT 3.5 GM As Ordered ONE; +fentaNYL 100 MCG/2 ML INJECTION As Ordered ONE; -mitoMYcin 0.2 MG/VIAL KIT FOR OPHTHALMIC USE (J7315 PER 0.2MG) As Ordered ONE
[2023-03-21] MEDS ORDERED: CEFUROXIME 1MG/0.1ML INTRACAMERAL INJ As Ordered ONE (12:53)
[2023-03-21] MEDS ORDERED: LIDOCAINE 1% SDV 5ML VIAL As Ordered ONE (12:55)
[2023-03-21] MEDS ORDERED: BSS IRRIG/VANCO(10MG)/TOBRA(5MG)/EPINEPH(1:1000-0.5CC)500ML BAG-ORONLY As Ordered ONE (13:14)
[2023-03-21] MEDS ORDERED: DUOVISC (0.50ML VISCOAT/0.85ML PROVISC) OPHTH KIT As Ordered ONE (13:36)
[2023-03-21] MEDS: LIDOCAINE 2% W/EPINEPHRINE 20ML VIAL **PRES FREE As Ordered ONE (13:45)
[2023-03-21] MEDS: mitoMYcin 0.2 MG/VIAL KIT FOR OPHTHALMIC USE As Ordered ONE (13:51)
[2023-03-21] MEDS: TOBRADEX OPHTH OINT 3.5 GM As Ordered ONE (14:33)
[2023-03-21 14:40] VITALS: BP 122/87; TEMP 97.3; O2SAT 96
== END 2023-03-21 15:04 | disposition home or self-care (01) ==
LOC: M SDC 11:49
PROVIDERS: ATTEND Ophthalmology
DX: H40.1121 Primary open-angle glaucoma, left eye, mild stage (principal); Z98.83 Filtering (vitreous) bleb after glaucoma surgery status; E11.9 Type 2 diabetes mellitus without complications; Z88.2 Allergy status to sulfonamides; Z79.899 Other long term (current) drug therapy
CPT/HCPCS: 66250; C1783; J0697; J2250; J3010; J7315